=== PATIENT | female | born 1950 | race Caucasian/White ===

== ENCOUNTER 2020-08-04 08:35 | Outpatient (REF) | payer MEDICARE, SELFPAY ==
[2020-08-04 11:05] LABS: Glucose Urine UA NEG (NEG); Leukocyte Esterase Urine NEG (NEG); Nitrite Urine NEG (NEG); Specific Gravity - Urine 1.015 (1.005-1.025); Urine Blood NEG (NEG); Urine Ketones 15 MG/DL (NEG); Urine Protein NEG (NEG-TRACE)
[2020-08-04 11:11] LABS: Appearance Urine CLEAR; Color Urine YELLOW
[2020-08-04 11:18] LABS: TSH reflex Free T4 1.65 mIU/mL (0.32-4.0)
[2020-08-04 11:20] LABS: Alanine Aminotransferase 110 U/L (0-31); Albumin Level 4.5 g/dL (3.5-5.0); Alkaline Phosphatase 96 U/L (39-117); Anion Gap 15 (12-20); Aspartate Amino Transferase 75 U/L (5-31); Bilirubin Total 0.4 mg/dL (0.0-1.0); Blood Urea Nitrogen 19 mg/dL (9-16); Calcium 9.4 mg/dL (8.4-10.2); Carbon Dioxide 26 mmol/L (22-29); Chloride 101 mmol/L (96-108); Cholesterol 181 mg/dL; Estimated Glomerular Filt Rate 55; Glucose Fasting 97 mg/dL (60-99); HDL Cholesterol 80 mg/dL; LDL Cholesterol Calculated 87 mg/dl; Potassium 3.8 mmol/l (3.3-5.1); Sodium 138 mmol/L (135-145); Total Protein 7.1 g/dL (6.5-8.0); Triglycerides 72 mg/dL
== END 2020-08-04 08:36 | disposition home or self-care (01) ==
LOC: HO.LAB 08:35
PROVIDERS: PCP Family Medicine; Visit Provider Family Medicine
DX: Z00.00 Encounter for general adult medical examination without abnormal findings (principal); I10 Essential (primary) hypertension
CPT/HCPCS: 80053; 80061; 81003; 84443

== ENCOUNTER 2020-10-01 10:42 | Outpatient (REF) | payer MEDICARE, SELFPAY ==
[2020-10-01 12:10] LABS: Alanine Aminotransferase 59 U/L (0-31); Albumin Level 4.5 g/dL (3.5-5.0); Alkaline Phosphatase 87 U/L (39-117); Anion Gap 17 (12-20); Aspartate Amino Transferase 41 U/L (5-31); Bilirubin Total 0.5 mg/dL (0.0-1.0); Blood Urea Nitrogen 24 mg/dL (9-16); Calcium 9.7 mg/dL (8.4-10.2); Carbon Dioxide 26 mmol/L (22-29); Chloride 99 mmol/L (96-108); Estimated Glomerular Filt Rate > 60; Glucose Random 99 mg/dL (60-115); Potassium 4.3 mmol/l (3.3-5.1); Sodium 138 mmol/L (135-145); Total Protein 7.2 g/dL (6.5-8.0)
== END 2020-10-01 10:43 | disposition home or self-care (01) ==
LOC: HO.LAB 10:42
PROVIDERS: PCP Family Medicine; Visit Provider Family Medicine
DX: R74.01 Elevation of levels of liver transaminase levels (principal)
CPT/HCPCS: 80053

== ENCOUNTER 2020-11-03 10:24 | Outpatient (REF) | payer MEDICARE, OTHER, SELFPAY ==
[2020-11-03 12:24] LABS: Alanine Aminotransferase 38 U/L (0-31); Albumin Level 4.5 g/dL (3.5-5.0); Alkaline Phosphatase 86 U/L (39-117); Anion Gap 13 (12-20); Aspartate Amino Transferase 28 U/L (5-31); Bilirubin Total 0.4 mg/dL (0.0-1.0); Blood Urea Nitrogen 18 mg/dL (9-16); Carbon Dioxide 28 mmol/L (22-29); Chloride 102 mmol/L (96-108); Estimated Glomerular Filt Rate > 60; Glucose Random 110 mg/dL (60-115); Sodium 139 mmol/L (135-145); Total Protein 7.2 g/dL (6.5-8.0)
== END 2020-11-03 10:25 | disposition home or self-care (01) ==
LOC: HO.LAB 10:24
PROVIDERS: Absent Provider Family Medicine; PCP Family Medicine; Visit Provider Urology
DX: N39.0 Urinary tract infection, site not specified (principal); R74.01 Elevation of levels of liver transaminase levels
CPT/HCPCS: 36415; 80053; Q3014

== ENCOUNTER 2021-02-02 08:41 | Outpatient (REF) | payer MEDICARE, OTHER, SELFPAY ==
[2021-02-02 10:11] LABS: Alanine Aminotransferase 33 U/L (0-31); Albumin Level 4.4 g/dL (3.5-5.0); Alkaline Phosphatase 86 U/L (39-117); Anion Gap 13 (12-20); Aspartate Amino Transferase 27 U/L (5-31); Bilirubin Total 0.6 mg/dL (0.0-1.0); Blood Urea Nitrogen 26 mg/dL (9-16); Calcium 9.4 mg/dL (8.4-10.2); Carbon Dioxide 28 mmol/L (22-29); Chloride 99 mmol/L (96-108); Estimated Glomerular Filt Rate 60; Glucose Random 106 mg/dL (60-115); Sodium 136 mmol/L (135-145); Total Protein 7.3 g/dL (6.5-8.0)
== END 2021-02-02 08:42 | disposition home or self-care (01) ==
LOC: HO.LAB 08:41
PROVIDERS: PCP Family Medicine; Visit Provider Family Medicine
DX: R74.01 Elevation of levels of liver transaminase levels (principal)
CPT/HCPCS: 36415; 80053

== ENCOUNTER 2021-05-17 08:27 | Outpatient (REF) | payer MEDICARE, OTHER, SELFPAY ==
[2021-05-17 09:35] LABS: Alanine Aminotransferase 24 U/L (0-31); Albumin Level 4.3 g/dL (3.5-5.0); Alkaline Phosphatase 84 U/L (39-117); Anion Gap 14 (12-20); Aspartate Amino Transferase 23 U/L (5-31); Bilirubin Total 0.4 mg/dL (0.0-1.0); Blood Urea Nitrogen 19 mg/dL (9-16); Calcium 9.4 mg/dL (8.4-10.2); Carbon Dioxide 28 mmol/L (22-29); Chloride 102 mmol/L (96-108); Estimated Glomerular Filt Rate 54; Glucose Fasting 109 mg/dL (60-99); Potassium 4.6 mmol/L (3.3-5.1); Sodium 139 mmol/L (135-145); Total Protein 7.1 g/dL (6.5-8.0)
== END 2021-05-17 08:28 | disposition home or self-care (01) ==
LOC: HO.LAB 08:27
PROVIDERS: PCP Family Medicine; Visit Provider Family Medicine
DX: Z00.00 Encounter for general adult medical examination without abnormal findings (principal); R74.01 Elevation of levels of liver transaminase levels
CPT/HCPCS: 36415; 80053

== ENCOUNTER 2021-12-03 07:38 | Outpatient (REF) | payer MEDICARE, OTHER, SELFPAY ==
[2021-12-03 09:00] LABS: Alanine Aminotransferase 27 U/L (0-31); Albumin Level 4.3 g/dL (3.5-5.0); Alkaline Phosphatase 71 U/L (39-117); Anion Gap 12 (12-20); Aspartate Amino Transferase 22 U/L (5-31); Bilirubin Total 0.5 mg/dL (0.0-1.0); Blood Urea Nitrogen 24 mg/dL (9-16); Calcium 9.9 mg/dL (8.4-10.2); Carbon Dioxide 26 mmol/L (22-29); Chloride 105 mmol/L (96-108); Cholesterol 153 mg/dL; Estimated Glomerular Filt Rate 52; Glucose Fasting 109 mg/dL (60-99); HDL Cholesterol 57 mg/dL; LDL Cholesterol Calculated 78 mg/dl; Potassium 4.3 mmol/L (3.3-5.1); Sodium 139 mmol/L (135-145); Triglycerides 92 mg/dL
[2021-12-03 09:15] LABS: Microalbum/Creatinine Ratio Ur 19.3 ug/mg cr
[2021-12-03 09:30] LABS: TSH reflex Free T4 2.81 uIU/mL (0.32-4.0)
== END 2021-12-03 07:39 | disposition home or self-care (01) ==
LOC: HO.LAB 07:38
PROVIDERS: PCP Family Medicine; Visit Provider Family Medicine
DX: Z00.00 Encounter for general adult medical examination without abnormal findings (principal); I10 Essential (primary) hypertension; R74.01 Elevation of levels of liver transaminase levels
CPT/HCPCS: 36415; 80053; 80061; 82043; 84443

== ENCOUNTER 2022-10-31 09:25 | Outpatient (REF) | payer MEDICARE, OTHER, SELFPAY ==
[2022-10-31 14:18] LABS: Appearance Urine Clear; Color Urine Yellow; Glucose Urine UA Negative (Negative); Leukocyte Esterase Urine Negative (Negative); Nitrite Urine Negative (Negative); PH 6.5 (5.0-9.0); Urine Blood Negative (Negative); Urine Ketones Negative (Negative); Urine Protein Negative (Neg-Trace)
[2022-10-31 15:20] LABS: Creatinine Urine 46.53 mg/dL; Microalbum/Creatinine Ratio Ur 19.3 ug/mg cr
== END 2022-10-31 09:26 | disposition home or self-care (01) ==
LOC: HO.LAB 09:25
PROVIDERS: PCP Family Medicine; Visit Provider Family Medicine
DX: Z00.00 Encounter for general adult medical examination without abnormal findings (principal); N39.0 Urinary tract infection, site not specified; I10 Essential (primary) hypertension
CPT/HCPCS: 81003; 82043; 87086

== ENCOUNTER 2023-06-08 07:28 | Outpatient (REF) | payer MEDICARE, OTHER, SELFPAY ==
[2023-06-08 07:38] LABS: MANUAL DIFF FLAG NO
[2023-06-08 08:51] LABS: Basophils Absolute Auto 0.1 X10*3/uL (0.0-0.2); Basophils Percent Auto 1.3 % (0-2); Eosinophils Absolute Auto 0.2 X10*3/uL (0.0-0.4); Eosinophils Percent Auto 2.7 % (0-4); Hemoglobin 13.4 g/dl (12.0-16.0); Imm Gran Abs Auto 0.03 X10*3/uL (0.00-0.03); Imm Gran Pct Auto 0.4 % (0.0-0.4); Lymphocytes Absolute Auto 1.7 X10*3/uL (1.2-4.9); Lymphocytes Percent Auto 22.4 % (20-40); Mean Corpuscular HGB Conc 32.7 g/dl (31.0-35.0); Mean Corpuscular Hemoglobin 29.6 pg (27.0-33.0); Mean Corpuscular Volume 90.5 fL (80.0-98.0); Monocytes Absolute Auto 0.8 X10*3/uL (0.1-1.2); Monocytes Percent Auto 10.8 % (2-11); Neutrophils Absolute Auto 4.6 x10*3/uL (2.0-8.3); Neutrophils Percent Auto 62.4 % (45-73); Platelet Count 402 X10*3/uL (160-400); Red Blood Count 4.53 X10*6/uL (4.20-5.50); Red Cell Distribution Width 12.9 % (11.0-16.0); White Blood Count 7.4 X10*3/uL (4.8-10.8)
[2023-06-08 09:51] LABS: Appearance Urine Clear; Color Urine Yellow; Glucose Urine UA Negative (Negative); Leukocyte Esterase Urine Negative (Negative); Nitrite Urine Negative (Negative); Specific Gravity - Urine 1.015 (1.005-1.025); UMIC TRIGGER UA YES; Urine Blood Trace (Negative); Urine Ketones Negative (Negative); Urine Protein Negative (Neg-Trace)
[2023-06-08 09:52] LABS: Alanine Aminotransferase 28 U/L (0-31); Albumin Level 4.3 g/dL (3.5-5.0); Alkaline Phosphatase 78 U/L (39-117); Anion Gap 14 (12-20); Aspartate Amino Transferase 25 U/L (5-31); Bilirubin Total 0.5 mg/dL (0.0-1.0); Blood Urea Nitrogen 24 mg/dL (9-16); Calcium 9.6 mg/dL (8.4-10.2); Carbon Dioxide 26 mmol/L (22-29); Chloride 104 mmol/L (96-108); Cholesterol 192 mg/dL; Estimated Glomerular Filt Rate 53; Glucose Fasting 111 mg/dL (60-99); HDL Cholesterol 84 mg/dL; LDL Cholesterol Calculated 95 mg/dl; Potassium 3.8 mmol/L (3.3-5.1); Sodium 140 mmol/L (135-145); Total Protein 7.5 g/dL (6.5-8.0); Triglycerides 68 mg/dL
[2023-06-08 09:54] LABS: Bacteria Urine None Seen (None Seen); RBC Urine 0-2 /HPF (0-2); Squamous Epithelial Cell Urine 0-2 /HPF (0-2); WBC Urine 0-5 /HPF (0-5)
[2023-06-08 09:56] LABS: TSH reflex Free T4 2.74 uIU/mL (0.32-4.0)
[2023-06-08 11:06] LABS: Creatinine Urine 127.91 mg/dL; Microalbum/Creatinine Ratio Ur 27.3 ug/mg cr
== END 2023-06-08 07:29 | disposition home or self-care (01) ==
LOC: HO.LAB 07:28
PROVIDERS: PCP Family Medicine; Visit Provider Family Medicine
DX: Z00.00 Encounter for general adult medical examination without abnormal findings (principal); I10 Essential (primary) hypertension
CPT/HCPCS: 36415; 80053; 80061; 81001; 82043; 84443; 85025

== ENCOUNTER 2023-06-15 10:40 | Outpatient (AMB) | payer MEDICARE, OTHER, SELFPAY ==
--- NOTE | 2023-06-15 10:42 | A.OFFPC_ITS ---
Vital Signs 06/15/23 10:43 Height 5 ft 1 in Weight 150 lb 4 oz BMI 28.4 BP 128/72 Blood Pressure Location Lt brachial Position Sitting Pulse 73 Pulse Source Pulse Oximeter Pulse Oximetry (%) 100 Oxygen Delivery Method Room Air Intake Visit Reasons: f/u hypertension and pre-diabetes Intake Note: Patient is here for her yearly exam today. Manager Benefit Required: Yes Allergies sulfadiazine Allergy (Unknown, Verified 06/15/23 10:46) itch Medication List - Last Reconciled 06/15/23 by Erik Vogt MD aspirin (Adult Aspirin Regimen) 81 mg PO DAILY atorvastatin 20 mg PO DAILY 90 days hydrochlorothiazide 25 mg PO DAILY lisinopril 40 mg PO DAILY 90 days loteprednol etabonate 0.5% (Lotemax) 1 drp ophthalmic (eye) BID metronidazole 0.75% 1 appl topical BEDTIME 30 days Tobacco use date assessed: 06/15/23 Fall risk assessment: No Falls in past year Last assessed Fall Risk: 06/15/23 Dental Screening Dental Screen Date: 06/15/23 Did you have a dental visit in the last 12 months?: No Did you have a dental problem in the last 6 months where you did not have access to dental care?: No Was dental information given to patient?: Patient has dentist HPI f/u hypertension and pre-diabetes HPI Details 73 y/o female presents to f/u hypertension and pre-diabetes. Labs were drawn 06/08/23. Reviewed labs with pt. Elevated fasting glucose of 111. Last A1c 04/18/23 5.6%. Triglycerides 68. TC 192. LDL 95. HDL 84. Blood pressure today 128/72. She is on lisinopril 40mg and HCTZ 25mg daily. [facility] Surgical History History of tonsillectomy Social History Housing: House Alcohol intake: current Alcohol intake frequency: a few times a week Patient Tobacco Use Status: Never used Tobacco e-Cigarette/Vaping Use: Never Used Second Hand Smoke Exposure: No service: No Current occupational status: retired Current occupational exposures/hazards: No Cognitive needs: No Hearing needs: No Vision needs: Yes Questionnaire Thrive Questionnaire Date Thrive assessed: 06/07/21 CONNIE-7 AMB Questionnaire CONNIE-7 Date CONNIE - 7 assessed: 08/31/22 Source: Developed by Drs. Vega Pichardo, Faina Tuttle, Shailesh Leach and colleagues, with an educational john from [employer]. Review of Systems Const Denies chills, Denies fatigue, Denies fever(s), Denies headache(s) and Denies weakness ENT Denies dizziness and Denies headache(s) Card Denies chest pain, Denies lightheadedness, Denies dyspnea and Denies other (Palpitations) Resp Denies cough, Denies dyspnea, Denies wheezing and Denies other ( shortness of breath) Musc Denies numbness and Denies tingling Neuro Denies dizziness, Denies headache(s), Denies numbness, Denies tingling, Denies paresthesias and Denies weakness Psych Denies anxiety and Denies depression Endo Denies fatigue Aller/Immun Denies wheezing Physical exam (Primary Care) Vital Signs: Last Vital Signs Pulse 73 06/15/23 10:43 BP 128/72 06/15/23 10:43 Pulse Ox 100 06/15/23 10:43 Oxygen Delivery Method Room Air 06/15/23 10:43 BMI result Body Mass Index 28.4 Tobacco/Smoking Status: Tobacco use Status Tobacco use date assessed 06/15/23 06/15/23 10:53 Patient Tobacco Use Status Never used Tobacco 06/15/23 10:53 e-Cigarette/Vaping Use Never Used 06/15/23 10:53 Thrive Assessment: Date of Thrive Assessment Date Thrive assessed 06/07/21 06/15/23 10:53 Const General: no acute distress and well developed Nutritional Appearance: well nourished Orientation/consciousness: patient oriented x3 HENMT Head: Yes normocephalic and Yes atraumatic Eyes General: appearance normal, both eyes and all related structures Pupils: Equal, round and reactive pupils present EOM: EOMs intact bilaterally Resp Effort & Inspection: normal respiratory effort Auscultation: clear to auscultation bilaterally Cardio Rate: regular rate Rhythm: regular rhythm Heart sounds: S1 normal heart sound present, S2 normal heart sound present, no gallops, no murmurs and no rubs Neuro General: patient oriented x3 and gait normal Cranial nerves: Yes Equal, round and reactive pupils present Psych Affect: normal affect Assessment and Plan Assessment & Plan (1) Essential hypertension: Code(s): I10 - Essential (primary) hypertension Plan: Pressure is well controlled. Goal is Less than 140/90 Continue current medication regimen (2) Hyperlipidemia: Code(s): E78.5 - Hyperlipidemia, unspecified Plan: Lipids are well controlled on atorvastatin Continue current medication (3) Pre-diabetes: Code(s): R73.03 - Prediabetes Plan: A1c was 5.6% 2 months ago. Fasting blood sugar last week was 111 Encouraged ongoing diet lower in sugars and starches and we will check her A1c a gain at her next visit Coding Level of Care Code Est Pt Level 3 (08454) Diagnoses Essential hypertension I10 Hyperlipidemia E78.5 Pre-diabetes R73.03
[2023-06-15 10:43] VITALS: BP 128/72; PULSE 73; O2SAT 100; BMI 28.4
== END 2023-06-15 11:19 | disposition home or self-care (01) ==
PROVIDERS: PCP Family Medicine; Visit Provider Family Medicine
DX: I10 Essential (primary) hypertension (principal); E78.5 Hyperlipidemia, unspecified; R73.03 Prediabetes
CPT/HCPCS: 99213

== ENCOUNTER 2023-07-27 12:47 | Outpatient (AMB) | payer MEDICARE, OTHER, SELFPAY ==
[2023-07-27 12:50] VITALS: BP 138/70; PULSE 92; RESP 12; TEMP 36.6; O2SAT 99; BMI 28.2
--- NOTE | 2023-07-27 12:50 | MHC.PC.OV ---
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: No Accompanied by: Self / Same As Patient Allergies sulfadiazine Allergy (Unknown, Verified 07/27/23 12:54) itch Tobacco use date assessed: 06/15/23 Fall risk assessment: No Falls in past year Last assessed Fall Risk: 07/27/23 Dental Screening Dental Screen Date: 07/27/23 Did you have a dental visit in the last 12 months?: No Did you have a dental problem in the last 6 months where you did not have access to dental care?: No Was dental information given to patient?: Patient has dentist HPI R cataract surgery-08/03 HPI Details Patient presents for preoperative clearance prior to bilateral cataract surgery. Procedure: Bilateral cataract surgery Date: R eye 08/03/23, L eye 08/22/23 Surgeon: Dr. Sandra Sadler [facility] Anesthesia: Cardiac Hx: None Pulmonary Hx: None & nonsmoker. Prior Surgical complications: None Prior Anesthesia Complications: None Coag Issues: None Functional [place]: Able to climb two flight of stairs, one flight of stairs with a bag of groceries. [facility] Medical History No pertinent past medical history Surgical History History of tonsillectomy Social History Housing: House Alcohol intake: current Alcohol intake frequency: a few times a week Patient Tobacco Use Status: Former Tobacco user e-Cigarette/Vaping Use: Never Used Second Hand Smoke Exposure: No service: No Current occupational status: retired Current occupational exposures/hazards: No Cognitive needs: No Hearing needs: No Vision needs: No Questionnaire Thrive Questionnaire Date Thrive assessed: 06/07/21 CONNIE-7 AMB Questionnaire CONNIE-7 Date CONNIE - 7 assessed: 08/31/22 Source: Developed by Drs. Vega Pichardo, Faina Tuttle, Shailesh Leach and colleagues, with an educational john from [employer]*. Review of Systems Const Denies chills, Denies fatigue, Denies fever(s), Denies headache(s) and Denies weakness ENT Denies dizziness and Denies headache(s) Card Denies chest pain, Denies lightheadedness, Denies dyspnea and Denies other (Palpitations) Resp Denies cough, Denies dyspnea, Denies wheezing and Denies other ( shortness of breath) Musc Denies numbness and Denies tingling Neuro Denies dizziness, Denies headache(s), Denies numbness, Denies tingling, Denies paresthesias and Denies weakness Psych Denies anxiety and Denies depression Endo Denies fatigue Aller/Immun Denies wheezing Physical exam (Primary Care) Vital Signs: Last Vital Signs Temp 97.8 F 07/27/23 12:50 Pulse 92 07/27/23 12:50 Resp 12 07/27/23 12:50 BP 138/70 07/27/23 12:50 Pulse Ox 99 07/27/23 12:50 Oxygen Delivery Method Room Air 07/27/23 12:50 BMI result Body Mass Index 28.2 Tobacco/Smoking Status: Tobacco use Status Tobacco use date assessed 06/15/23 07/27/23 12:56 Patient Tobacco Use Status Former Tobacco user 07/27/23 12:56 e-Cigarette/Vaping Use Never Used 07/27/23 12:56 Thrive Assessment: Date of Thrive Assessment Date Thrive assessed 06/07/21 07/27/23 12:56 Const General: no acute distress and well developed Nutritional Appearance: well nourished Orientation/consciousness: patient oriented x3 [facility] Head: Yes normocephalic and Yes atraumatic Eyes General: appearance normal, both eyes and all related structures Pupils: Equal, round and reactive pupils present EOM: EOMs intact bilaterally Resp Effort & Inspection: normal respiratory effort Auscultation: clear to auscultation bilaterally Cardio Rate: regular rate Rhythm: regular rhythm Heart sounds: S1 normal heart sound present, S2 normal heart sound present, no gallops, no murmurs and no rubs Neuro General: patient oriented x3 and gait normal Cranial nerves: Yes Equal, round and reactive pupils present Psych Affect: normal affect Assessment and Plan Assessment & Plan (1) Pre-operative clearance: Code(s): Z01.818 - Encounter for other preprocedural examination Plan: 73-year-old?female?presents?for?preoperative?clearance?prior?to?cataract?surgeries. No?history?of?heart?disease. No?history?of?lung?disease Cardiopulmonary?exams?today?are?within?normal?limits No?history?of?surgical?or?anesthesia?complications.??No?coagulopathies. Patient's?functional?reserve?is?good. Low?risk?patient?for?low?risk?procedure no?contraindications?to?proceeding?with?proposed?procedure. Coding Level of Care Code Est Pt Level 3 (97446) Diagnoses Pre-operative clearance Z01.818
== END 2023-07-27 13:21 | disposition home or self-care (01) ==
PROVIDERS: PCP Family Medicine; Visit Provider Family Medicine
DX: Z01.818 Encounter for other preprocedural examination (principal)
CPT/HCPCS: 99213

== ENCOUNTER 2023-09-21 10:49 | Outpatient (AMB) | payer MEDICARE, OTHER, SELFPAY ==
--- NOTE | 2023-09-21 11:06 | A.OFFPC_ITS ---
Vital Signs 09/21/23 11:07 Height 5 ft 1 in Weight 151 lb BMI 28.5 BP 132/82 Blood Pressure Location Lt brachial Position Sitting Pulse 82 Pulse Source Pulse Oximeter Pulse Oximetry (%) 99 Oxygen Delivery Method Room Air Intake Visit Reasons: Extended exam with f/u labs and health maint. Intake Note: Patient is here for extended exam with follow up on labs and health maintenance. Patient would like refill of hydrochlorothiazide. Allergies sulfadiazine Allergy (Unknown, Verified 09/21/23 11:08) itch Tobacco use date assessed: 09/21/23 Fall risk assessment: No Falls in past year Last assessed Fall Risk: 09/21/23 HPI Extended exam with f/u labs and health maint. HPI Details 73 y/o female presents for an extended e xam with f/u labs and health maintenance. Had already reviewed labs drawn in May. Last A1c 04/18/23 5.6%. A1c today 09/21/23 is 5.7%. She notes when she had done her cataract surgery her blood pressure had been in the 190s. She reports she tolerated the procedure well. BP today 132/82. She is on lisinopril 40mg, hydrochlorothiazide 25mg daily. [facility] Medical History No pertinent past medical history Surgical History History of tonsillectomy Social History Housing: House Alcohol intake: current Alcohol intake frequency: a few times a week Patient Tobacco Use Status: Former Tobacco user e-Cigarette/Vaping Use: Never Used Second Hand Smoke Exposure: No service: No Current occupational status: retired Current occupational exposures/hazards: No Cognitive needs: No Hearing needs: No Vision needs: No Questionnaire PHQ-9 Over the last 2 weeks, how often have you been bothered by any of the following problems? 1. Little interest or pleasure in doing things: not at all 2. Feeling down, depressed, or hopeless: not at all 3. Trouble falling or staying asleep, or sleeping too much: not at all 4. Feeling tired or having little energy: not at all 5. Poor appetite or overeating: not at all 6. Feeling bad about yourself - or that you are a failure or have let yourself or your family down: not at all 7. Trouble concentrating on things, such as reading the newspaper or watching television: not at all 8. Moving or speaking so slowly that other people could have noticed. Or the opposite - being so fidgety or restless that you have been moving around a lot more than usual: not at all 9. Thoughts that you would be better off or of hurting yourself in some way: not at all Total score: 0 Source: Developed by Drs. Vega Pichardo, Faina Tuttle, Shailesh Leach and colleagues, with an educational john from [employer]. Thrive Questionnaire Date Thrive assessed: 09/21/23 I am a: Patient What is your living situation today?: I have a steady place to live Within the past 12 months, did the food you bought not last and you didn't have the money to get more?: Never true Within the past 12 months, did you worry whether your food would run out before you got money to buy more?: Never true Do you have trouble paying for medicines?: No Do you have trouble getting transportation to medical appointments?: No Do you have trouble paying your heating and electricity bill?: No Do you have trouble taking care of your child, family member or friend?: No Do you have trouble with day-to-day activities such as bathing, preparing meals, shopping, managing finances, etc.?: No Are you currently unemployed and looking for a job?: No Are you interested in more education?: No AUDIT C Alcohol Use Questionnaire (AUDIT-C) 1. How often do you have a drink containing alcohol?: 4 or more times a week 2. How many drinks containing alcohol do you have on a typical day when you are drinking?: 1 or 2 3. How often do you have six or more drinks on one occasion?: Never Total Score: 4 CONNIE-7 AMB Questionnaire CONNIE-7 Date CONNIE - 7 assessed: 09/21/23 Feeling nervous, anxious, or on edge: 0 = Not at all Not being able to stop or control worryin = Not at all Worrying too much about different things: 0 = Not at all Trouble relaxin = Not at all Being so restless that it is hard to sit still: 0 = Not at all Becoming easily annoyed or irritable: 0 = Not at all Feeling afraid as if something awful might happen: 0 = Not at all Total CONNIE-7 score (0-4 normal; 5-9 mild; 10-14 moderate; 15-21 severe): 0 Source: Developed by Drs. Vega Pichardo, Faina Tuttle, Shailesh Leach and colleagues, with an educational john from [employer]. Review of Systems Const Denies chills, Denies fatigue, Denies fever(s), Denies headache(s) and Denies weakness Eyes Denies change in vision ENT Denies dizziness, Denies headache(s), Denies hearing loss, Denies nasal congestion, Denies sinus pain, Denies sinus pressure and Denies sore throat Card Denies chest pain, Denies lightheadedness, Denies dyspnea and Denies other (palpitations) Resp Denies cough, Denies dyspnea and Denies wheezing GI Denies abdominal pain, Denies melena, Denies hematochezia, Denies change in bowel habits, Denies dyspepsia and Denies nausea Denies hematuria and Denies dysuria Musc Denies abnormal gait, Denies myalgias, Denies arthralgias, Denies numbness and Denies tingling Skin/Breast Denies rash, Denies unusual bruising and Denies wounds Neuro Denies abnormal gait, Denies dizziness, Denies headache(s), Denies memory loss, Denies numbness, Denies Sensory deficit (Neuro), Denies tingling and Denies weakness Psych Denies anxiety, Denies depression and Denies memory loss Endo Denies cold intolerance, Denies fatigue, Denies heat intolerance, Denies polydipsia and Denies polyuria Asa/Lymph Denies easy bleeding and Denies easy bruising Aller/Immun Denies wheezing Physical exam (Primary Care) Vital Signs: Last Vital Signs Pulse 82 09/21/23 11:07 BP 132/82 09/21/23 11:07 Pulse Ox 99 09/21/23 11:07 Oxygen Delivery Method Room Air 09/21/23 11:07 BMI result Body Mass Index 28.5 Tobacco/Smoking Status: Tobacco use Status Tobacco use date assessed 09/21/23 09/21/23 11:10 Patient Tobacco Use Status Former Tobacco user 09/21/23 11:07 e-Cigarette/Vaping Use Never Used 09/21/23 11:07 PHQ-9: PHQ-9 Score PHQ-9: Total score 0 09/21/23 11:39 Thrive Assessment: Date of Thrive Assessment Date Thrive assessed 09/21/23 09/21/23 11:17 Const General: no acute distress, well developed, alert and awake Nutritional Appearance: well nourished Orientation/consciousness: patient oriented x3 HENMT Head: Yes normocephalic and Yes atraumatic Ears: hearing grossly normal bilaterally and TM's normal bilaterally General nose exam: Normal external nose present and Normal nares present Mouth: Normal oral and palatal mucosa present and moist mucous membranes Teeth and gingiva: dentition normal Throat: Yes posterior oropharynx normal Eyes General: appearance normal, both eyes and all related structures Pupils: Equal, round and reactive pupils present and Pupil accommodation reflex normal EOM: EOMs intact bilaterally Neck Neck: Yes normal visual inspection, Yes no lymphadenopathy and Yes trachea midline Thyroid: Thyroid normal Carotids: no bruits Lymphatic: no lymphadenopathy noted Chest Chest palpation & inspection: normal inspection of the chest Resp Effort & Inspection: normal respiratory effort Auscultation: clear to auscultation bilaterally Cardio Rate: regular rate Rhythm: regular rhythm Heart sounds: S1 normal heart sound present, S2 normal heart sound present, no gallops, no murmurs and no rubs Bruits: no abdominal aortic bruits and no carotid bruits GI Palpation (GI): No Abdominal aortic bruit present, Soft to palpation, nontender, No hepatosplenomegaly present and No Rebound tenderness present Auscultation: normal bowel sounds General: Yes no CVA tenderness Back/Spine/Pelvis Back: no CVA tenderness Cervical Spine: cervical ROM normal and No Cervical spine tenderness Thoracic/Lumbar Spine: thoraco-lumbar ROM normal, No pain with thoraco-lumbar ROM, No thoracic spinal tenderness and No lumbar spinal tenderness Skin Lesions: no lesions Rashes: no rashes Trauma: no lacerations or abrasions Wounds: no wounds Nails: normal Neuro General: patient oriented x3 Cranial nerves: Yes Equal, round and reactive pupils present Cognition (Neuro): normal cognition Gait exam (Neuro): Normal gait present Motor exam (neuro): 5/5 motor strength present throughout Sensory Exam: No Sensory deficit (Neuro) Deep tendon reflexes (DTR's): Right patellar reflex intensity grade: 2+ and Left patellar reflex intensity grade: 2+ Extrem General: Yes normal to inspection and No edema Psych Appearance: grossly normal Affect: normal affect Attitude: cooperative Thought process: Normal thought process present Assessment and Plan Assessment & Plan (1) Essential hypertension: Code(s): I10 - Essential (primary) hypertension Plan: Blood?pressure?controlled.??Goal?is?less?than?140/90. She?notes?that?her?blood?pressures?were?higher?at?Ophthalmology?for?her?surgerie s?for?glaucoma. May?have?been?secondary?to?fasting?and?anxiety. She?will?let?me?know?if?her?blood?pressures?are?higher?out?in?the?community. No?changes?to?her?regimen?today?but?we?will?follow- up?at?her?next?visit?in?3?months. (2) Hyperlipidemia: Code(s): E78.5 - Hyperlipidemia, unspecified Plan: Lipids?are?controlled. (3) Pre-diabetes: Code(s): R73.03 - Prediabetes Plan: 5.7% and?will?discuss?at?next?visit (4) Screening for colon cancer: Code(s): Z12.11 - Encounter for screening for malignant neoplasm of colon Plan: Cologuard?test?last?year?negative Up-to-date (5) Breast cancer screening by mammogram: Code(s): Z12.31 - Encounter for screening mammogram for malignant neoplasm of breast Plan: Declines?mammogram Performs?self?exam?and?will?let?me?know?if?she?notices?any?changes (6) Screening for osteoporosis: Code(s): Z13.820 - Encounter for screening for osteoporosis Plan: Risk?for?osteoporosis Bone?density?test?ordered (7) Adult general medical exam: Code(s): Z00.00 - Encounter for general adult medical examination without abnormal findings Plan: Stable Orders: Orders XR DEXA axial skeleton Today Z91.89 - Other specified personal risk factors, not elsewhere classified Medications: Refilled hydrochlorothiazide 25 mg PO DAILY 90 tabs 1RF I10 - Essential (primary) hypertension Coding Level of Care Code Tele Est Pt Level 4 (45419) Diagnoses Essential hypertension I10 Hyperlipidemia E78.5 Pre-diabetes R73.03 Screening for colon cancer Z12.11 Breast cancer screening by mammogram Z12.31 Screening for osteoporosis Z13.820 Adult general medical exam Z00.00
[2023-09-21 11:07] VITALS: BP 132/82; PULSE 82; O2SAT 99; BMI 28.5
== END 2023-09-21 11:54 | disposition home or self-care (01) ==
PROVIDERS: PCP Family Medicine; Visit Provider Family Medicine
DX: I10 Essential (primary) hypertension (principal); E78.5 Hyperlipidemia, unspecified; R73.03 Prediabetes; Z12.11 Encounter for screening for malignant neoplasm of colon; Z12.31 Encounter for screening mammogram for malignant neoplasm of breast; Z13.820 Encounter for screening for osteoporosis
CPT/HCPCS: 83036; 99214

== ENCOUNTER 2024-05-20 10:38 | Outpatient (AMB) | payer MEDICARE, OTHER, SELFPAY ==
--- NOTE | 2024-05-20 10:44 | A.OFFPC_ITS ---
Vital Signs 05/20/24 10:45 Height 5 ft 1 in Weight 150 lb 6 oz BMI 28.4 BP 112/70 Blood Pressure Location Rt brachial Position Sitting Pulse 81 Pulse Source Pulse Oximeter Pulse Oximetry (%) 100 Oxygen Delivery Method Room Air Intake Visit Reasons: f/u hypertension and prediabetes Intake Note: Julienne is a 74 year old female who presents to the office today for a f/u hyper tension and prediabetes. Pt states she has what looks like a bug bite that fills with fluid on her left foot that she woulf like looked at today. Allergies sulfadiazine Allergy (Unknown, Verified 05/20/24 10:45) itch Medication List - Last Reconciled 05/20/24 by Erik Vogt MD aspirin (Adult Aspirin Regimen) 81 mg PO DAILY atorvastatin 20 mg PO DAILY 90 days hydrochlorothiazide 25 mg PO DAILY lisinopril 40 mg PO DAILY 90 days loteprednol etabonate 0.5% (Lotemax) 1 drp ophthalmic (eye) BID metronidazole 0.75% 1 appl topical BEDTIME 30 days Tobacco use date assessed: 05/20/24 Dental Screening Dental Screen Date: 02/16/24 HPI f/u hypertension and prediabetes HPI Details 74 y/o female presents to f/u hypertensi on and prediabetes. A1c today 05/20/24 5.3%, which improved from 6.3% in January. Blood pressure today 112/70. She is on hydrochlorothiazide 25mg, lisinopril 40mg daily. She continues to watch her diet. Pt has complaints of a bug bite/skin irritation, L foot. Has been using benadryl ointment which has helped with the itch. [facility] Medical History No pertinent past medical history Surgical History History of tonsillectomy Social History Housing: House Alcohol intake: current Alcohol intake frequency: a few times a week Patient Tobacco Use Status: Former Tobacco user e-Cigarette/Vaping Use: Never Used Second Hand Smoke Exposure: No service: No Current occupational status: retired Current occupational exposures/hazards: No Cognitive needs: No Hearing needs: No Vision needs: No Questionnaire PHQ-9 Over the last 2 weeks, how often have you been bothered by any of the following problems? 53225 - PHQ-9 Billing: Patient declined-do not bill Source: Developed by Drs. Vega Pichardo, Faina Tuttle, Shailesh Leach and colleagues, with an educational john from [employer]. Thrive Questionnaire Date Thrive assessed: 02/16/24 What is your living situation today?: I choose not to answer this question Within the past 12 months, did the food you bought not last and you didn't have the money to get more?: I choose not to answer this question Within the past 12 months, did you worry whether your food would run out before you got money to buy more?: I choose not to answer this question Do you have trouble paying for medicines?: I choose not to answer this question Do you have trouble getting transportation to medical appointments?: I choose not to answer this question Do you have trouble paying your heating and electricity bill?: I choose not to answer this question Do you have trouble taking care of your child, family member or friend?: I choose not to answer this question Do you have trouble with day-to-day activities such as bathing, preparing meals, shopping, managing finances, etc.?: I choose not to answer this question Are you currently unemployed and looking for a job?: I choose not to answer this question Are you interested in more education?: I choose not to answer this question THRIVE Score: 0 AUDIT C Alcohol Use Questionnaire (AUDIT-C) 1. How often do you have a drink containing alcohol?: 2-3 times a week 2. How many drinks containing alcohol do you have on a typical day when you are drinking?: 3 or 4 3. How often do you have six or more drinks on one occasion?: Never Total Score: 4 CONNIE-7 AMB Questionnaire CONNIE-7 Date CONNIE - 7 assessed: 09/21/23 Source: Developed by Drs. Vega Pichardo, Faina Tuttle, Shailesh Leach and colleagues, with an educational john from [employer]. CONNIE-7 Assessment Billing CONNIE-7 Assessment Tool: pt declined-do not bill Review of Systems Const Denies chills, Denies fatigue, Denies fever(s), Denies headache(s) and Denies weakness ENT Denies dizziness and Denies headache(s) Card Denies dyspnea Resp Denies cough, Denies dyspnea, Denies wheezing and Denies other (shortness of breath) Musc Denies numbness and Denies tingling Neuro Denies dizziness, Denies headache(s), Denies numbness, Denies tingling and Denies weakness Psych Denies anxiety and Denies depression Endo Denies fatigue Aller/Immun Denies wheezing Physical exam (Primary Care) Vital Signs: Last Vital Signs Pulse 81 05/20/24 10:45 BP 112/70 05/20/24 10:45 Pulse Ox 100 05/20/24 10:45 Oxygen Delivery Method Room Air 05/20/24 10:45 BMI result Body Mass Index 28.4 Tobacco/Smoking Status: Tobacco use Status Tobacco use date assessed 05/20/24 05/20/24 10:47 Patient Tobacco Use Status Former Tobacco user 05/20/24 10:44 e-Cigarette/Vaping Use Never Used 05/20/24 10:44 Thrive Assessment: Date of Thrive Assessment Date Thrive assessed 02/16/24 05/20/24 10:44 Const General: well developed; No acute distress Nutritional Appearance: well nourished Orientation/consciousness: patient oriented x3 HENMT Head: Yes normocephalic and Yes atraumatic Eyes General: appearance normal, both eyes and all related structures Pupils: Equal, round and reactive pupils present EOM: EOMs intact bilaterally Resp Effort & Inspection: normal respiratory effort Neuro General: patient oriented x3 and gait normal Cranial nerves: Yes Equal, round and reactive pupils present Psych Affect: normal affect Results AMB Hemoglobin A1c AMB Hemoglobin A1c 5.3 % Last Edit by Anne Marie Wiley CMA on 05/20/24 11:10 Results Reviewed Results Reviewed: Laboratory Last Values Hgb A1c (Clinic) 5.3 % (4.0-6.0) 05/20/24 11:06 Assessment and Plan Assessment & Plan (1) Essential hypertension: Code(s): I10 - Essential (primary) hypertension Plan: Blood?pressure?is?well?controlled.??Goal?is?less?than?140/90 Continue?current?medication?regimen (2) Pre-diabetes: Code(s): R73.03 - Prediabetes Plan: A1c?had?climbed?to?6.3%.??Had?advised?lifestyle?changes A1c?now?5.3%?today Continue?diet?low?in?sugars?and?starches,?weight?control?and?exercise (3) Skin irritation: Code(s): R23.8 - Other skin changes Plan: Appears?to?be?a?hypersensitivity?reaction?such?as?contact?dermatitis Will?give?her?a?script?for?betamethasone?ointment She?can?let?me?know?if?not?improving?or?return Orders: Orders AMB Hemoglobin A1c Today R73.03 - Prediabetes Comprehensive [place]. Panel Fast Today Z00.00 - Encounter for general adult medical examination without abnormal findings Complete Blood Count Auto Diff Today Z00.00 - Encounter for general adult medical examination without abnormal findings TSH reflex Free T4 Today Z00.00 - Encounter for general adult medical examination without abnormal findings UA and rflx microscopic Today Z00.00 - Encounter for general adult medical examination without abnormal findings Lipid Panel Today Z00.00 - Encounter for general adult medical examination without abnormal findings Microalbumin, Random (w Creat) Today I10 - Essential (primary) hypertension Vitamin D 25-OH Total Today E55.9 - Vitamin D deficiency, unspecified Medications: New betamethasone valerate 0.1% 1 appl topical BID 14 days PRN 45 grams 0RF skin irritation Coding Level of Care Code Est Pt Level 3 (89575) Diagnoses Essential hypertension I10 Pre-diabetes R73.03 Skin irritation R23.8
[2024-05-20 10:45] VITALS: BP 112/70; PULSE 81; O2SAT 100; BMI 28.4
== END 2024-05-20 11:27 | disposition home or self-care (01) ==
PROVIDERS: PCP Family Medicine; Visit Provider Family Medicine
DX: I10 Essential (primary) hypertension (principal); R73.03 Prediabetes; R23.8 Other skin changes
CPT/HCPCS: 83036; 99213

== ENCOUNTER 2024-09-17 08:40 | Outpatient (REF) | payer MEDICARE, OTHER, SELFPAY ==
[2024-09-17 08:57] LABS: MANUAL DIFF FLAG NO
[2024-09-17 09:51] LABS: Basophils Absolute Auto 0.1 X10*3/uL (0.0-0.2); Basophils Percent Auto 1.8 % (0-2); Eosinophils Absolute Auto 0.3 X10*3/uL (0.0-0.4); Eosinophils Percent Auto 4.3 % (0-4); Hematocrit 36.4 % (37.0-47.0); Hemoglobin 12.1 g/dl (12.0-16.0); Imm Gran Abs Auto 0.02 X10*3/uL (0.00-0.03); Imm Gran Pct Auto 0.3 % (0.0-0.4); Lymphocytes Absolute Auto 1.4 X10*3/uL (1.2-4.9); Lymphocytes Percent Auto 22.4 % (20-40); Mean Corpuscular HGB Conc 33.2 g/dl (31.0-35.0); Mean Corpuscular Hemoglobin 29.1 pg (27.0-33.0); Mean Corpuscular Volume 87.5 fL (80.0-98.0); Mean Platelet Volume 9.7 fL (9.4-12.3); Monocytes Absolute Auto 0.8 X10*3/uL (0.1-1.2); Monocytes Percent Auto 13.2 % (2-11); Neutrophils Absolute Auto 3.5 x10*3/uL (2.0-8.3); Platelet Count 368 X10*3/uL (160-400); Red Blood Count 4.16 X10*6/uL (4.20-5.50); Red Cell Distribution Width 12.8 % (11.0-16.0); White Blood Count 6.1 X10*3/uL (4.8-10.8)
[2024-09-17 10:34] LABS: Appearance Urine Clear; Color Urine Yellow; Glucose Urine UA Negative (Negative); Leukocyte Esterase Urine Small (1+) (Negative); Nitrite Urine Negative (Negative); UMIC TRIGGER UA YES; Urine Blood Negative (Negative); Urine Ketones Negative (Negative); Urine Protein Negative (Neg-Trace)
[2024-09-17 10:51] LABS: Alanine Aminotransferase 22 U/L (0-31); Albumin Level 4.2 g/dL (3.5-5.0); Alkaline Phosphatase 79 U/L (39-117); Anion Gap 13 (12-20); Aspartate Amino Transferase 24 U/L (5-31); Bilirubin Total 0.5 mg/dL (0.0-1.0); Blood Urea Nitrogen 18 mg/dL (9-16); Calcium 9.4 mg/dL (8.4-10.2); Carbon Dioxide 27 mmol/L (22-29); Chloride 97 mmol/L (96-108); Cholesterol 168 mg/dL (<200); Estimated Glomerular Filt Rate > 60; Glucose Fasting 105 mg/dL (60-99); HDL Cholesterol 83 mg/dL (>40); LDL Cholesterol Calculated 75 mg/dL (<100); Potassium 3.7 mmol/L (3.3-5.1); Sodium 133 mmol/L (135-145); Total Protein 7.1 g/dL (6.5-8.0); Triglycerides 52 mg/dL (<150)
[2024-09-17 10:54] LABS: Bacteria Urine None Seen (None Seen); Hyaline Casts Urine 0-2 /LPF (0-2); RBC Urine 0-2 /HPF (0-2); WBC Urine 0-5 /HPF (0-5)
[2024-09-17 10:54] LABS: TSH reflex Free T4 2.67 uIU/mL (0.32-4.0); Vitamin D 25-OH Total 21.1 ng/mL (>30)
[2024-09-17 10:56] LABS: Creatinine Urine 99.04 mg/dL; Microalbum/Creatinine Ratio Ur 30.2 ug/mg cr (<30)
== END 2024-09-17 08:41 | disposition home or self-care (01) ==
LOC: HO.LAB 08:40
PROVIDERS: PCP Family Medicine; Visit Provider Family Medicine
DX: Z00.00 Encounter for general adult medical examination without abnormal findings (principal); I10 Essential (primary) hypertension; E55.9 Vitamin D deficiency, unspecified
CPT/HCPCS: 36415; 80053; 80061; 81001; 81003; 82043; 82306; 82570; 84443; 85025

== ENCOUNTER 2024-09-26 15:46 | Outpatient (AMB) | payer MEDICARE, OTHER, SELFPAY ==
--- NOTE | 2024-09-26 16:00 | A.OFFPC_ITS ---
Vital Signs 09/26/24 16:01 Height 5 ft 1 in Weight 152 lb BMI 28.7 BP 112/60 Blood Pressure Location Rt brachial Position Sitting Respiration 14 Pulse 88 Pulse Source Pulse Oximeter Pulse Oximetry (%) 99 Oxygen Delivery Method Room Air Intake Visit Reasons: cpe follow up labs Intake Note: cpe labs Allergies sulfadiazine Allergy (Unknown, Verified 09/26/24 16:00) itch Medication List - Last Reconciled 09/26/24 by Erik Vogt MD aspirin (Adult Aspirin Regimen) 81 mg PO DAILY atorvastatin 20 mg PO DAILY 90 days betamethasone valerate 0.1% 1 appl topical BID PRN 14 days hydrochlorothiazide 25 mg PO DAILY lisinopril 40 mg PO DAILY 90 days loteprednol etabonate 0.5% (Lotemax) 1 drp ophthalmic (eye) BID metronidazole 0.75% 1 appl topical BEDTIME 30 days Tobacco use date assessed: 05/20/24 Dental Screening Dental Screen Date: 02/16/24 HPI cpe follow up labs HPI Details 74 y/o female presents for an extended e xam with f/u labs and health maintenance. Labs drawn 09/17/24. Reviewed labs with pt. Elevated fasting glucose of 105. Triglycerides 52. TC 168. LDL 75. HDL 83. Low vitamin D of 21.1. Sodium levels mildly low at 133. HPI Comments History of Present Illness Details Documentation assistance for Erik Vogt MD, was provided by Jaime Barbour, Industrial Maintenance Mechanic on 09/26/2024 at 4:44 PM EST. I, Dr. Vogt, have read, observed, and verified documentation. [facility] Medical History No pertinent past medical history Surgical History History of tonsillectomy Social History Housing: House Alcohol intake: current Alcohol intake frequency: a few times a week Patient Tobacco Use Status: Former Tobacco user e-Cigarette/Vaping Use: Never Used Second Hand Smoke Exposure: No service: No Current occupational status: retired Current occupational exposures/hazards: No Cognitive needs: No Hearing needs: No Vision needs: No Questionnaire PHQ-9 Over the last 2 weeks, how often have you been bothered by any of the following problems? 4. Feeling tired or having little energy: not at all 7. Trouble concentrating on things, such as reading the newspaper or watching television: not at all 9. Thoughts that you would be better off or of hurting yourself in some way: not at all Source: Developed by Drs. Vega Pichardo, Faina Tuttle, Shailesh Leach and colleagues, with an educational john from [email or web address]. Thrive Questionnaire Date Thrive assessed: 09/19/24 I am a: Patient What is your living situation today?: I have a steady place to live Within the past 12 months, did the food you bought not last and you didn't have the money to get more?: I choose not to answer this question Within the past 12 months, did you worry whether your food would run out before you got money to buy more?: I choose not to answer this question Do you have trouble paying for medicines?: No Do you have trouble getting transportation to medical appointments?: No Do you have trouble paying your heating and electricity bill?: I choose not to answer this question Do you have trouble taking care of your child, family member or friend?: I choose not to answer this question Do you have trouble with day-to-day activities such as bathing, preparing meals, shopping, managing finances, etc.?: I choose not to answer this question Are you currently unemployed and looking for a job?: I choose not to answer this question Are you interested in more education?: I choose not to answer this question Please select the resources that you would like help with: None Currently or been in a relationship where the following occur: I choose not to answer THRIVE Score: 0 AUDIT C Alcohol Use Questionnaire (AUDIT-C) 1. How often do you have a drink containing alcohol?: Never 3. How often do you have six or more drinks on one occasion?: Never Total Score: 0 CONNIE-7 AMB Questionnaire CONNIE-7 Date CONNIE - 7 assessed: 09/21/23 Feeling nervous, anxious, or on edge: 0 = Not at all Not being able to stop or control worryin = Not at all Worrying too much about different things: 0 = Not at all Trouble relaxin = Not at all Being so restless that it is hard to sit still: 0 = Not at all Becoming easily annoyed or irritable: 0 = Not at all Feeling afraid as if something awful might happen: 0 = Not at all Total CONNIE-7 score (0-4 normal; 5-9 mild; 10-14 moderate; 15-21 severe): 0 Source: Developed by Drs. Vega Pichardo, Faina Tuttle, Shailesh Leach and colleagues, with an educational john from [email or web address]. Review of Systems Const Denies chills, Denies fatigue, Denies fever(s), Denies headache(s) and Denies weakness Eyes Denies change in vision ENT Denies dizziness, Denies headache(s), Denies hearing loss, Denies nasal congestion, Denies sinus pain, Denies sinus pressure and Denies sore throat Card Denies chest pain, Denies lightheadedness, Denies dyspnea and Denies other (palpitations) Resp Denies cough, Denies dyspnea and Denies wheezing GI Denies abdominal pain, Denies melena, Denies hematochezia, Denies change in bowel habits, Denies dyspepsia and Denies nausea Denies hematuria and Denies dysuria Musc Denies abnormal gait, Denies myalgias, Denies arthralgias, Denies numbness and Denies tingling Skin/Breast Denies rash, Denies unusual bruising and Denies wounds Neuro Denies abnormal gait, Denies dizziness, Denies headache(s), Denies memory loss, Denies numbness, Denies Sensory deficit (Neuro), Denies tingling and Denies weakness Psych Denies anxiety, Denies depression and Denies memory loss Endo Denies cold intolerance, Denies fatigue, Denies heat intolerance, Denies polydipsia and Denies polyuria Asa/Lymph Denies easy bleeding and Denies easy bruising Aller/Immun Denies wheezing Physical exam (Primary Care) Vital Signs: Last Vital Signs Pulse 88 09/26/24 16:01 Resp 14 09/26/24 16:01 BP 112/60 09/26/24 16:01 Pulse Ox 99 09/26/24 16:01 Oxygen Delivery Method Room Air 09/26/24 16:01 BMI result Body Mass Index 28.7 Tobacco/Smoking Status: Tobacco use Status Tobacco use date assessed 05/20/24 09/26/24 16:05 Patient Tobacco Use Status Former Tobacco user 09/26/24 16:05 e-Cigarette/Vaping Use Never Used 09/26/24 16:05 Thrive Assessment: Date of Thrive Assessment Date Thrive assessed 09/19/24 09/26/24 16:05 Currently or been in a relationship where the following occur: I choose not to answer Const General: no acute distress, well developed, alert and awake Nutritional Appearance: well nourished Orientation/consciousness: patient oriented x3 HENMT Head: Yes normocephalic and Yes atraumatic Ears: hearing grossly normal bilaterally and TM's normal bilaterally General nose exam: Normal external nose present and Normal nares present Mouth: Normal oral and palatal mucosa present and moist mucous membranes Teeth and gingiva: dentition normal Throat: Yes posterior oropharynx normal Eyes General: appearance normal, both eyes and all related structures Pupils: Equal, round and reactive pupils present and Pupil accommodation reflex normal EOM: EOMs intact bilaterally Neck Neck: Yes normal visual inspection, Yes no lymphadenopathy and Yes trachea midline Thyroid: Thyroid normal Carotids: no bruits Lymphatic: no lymphadenopathy noted Chest Chest palpation & inspection: normal inspection of the chest Resp Effort & Inspection: normal respiratory effort Auscultation: clear to auscultation bilaterally Cardio Rate: regular rate Rhythm: regular rhythm Heart sounds: S1 normal heart sound present, S2 normal heart sound present, no gallops, no murmurs and no rubs Bruits: no abdominal aortic bruits and no carotid bruits GI Palpation (GI): No Abdominal aortic bruit present, Soft to palpation, nontender, No hepatosplenomegaly present and No Rebound tenderness present Auscultation: normal bowel sounds General: Yes no CVA tenderness Back/Spine/Pelvis Back: no CVA tenderness Cervical Spine: cervical ROM normal and No Cervical spine tenderness Thoracic/Lumbar Spine: thoraco-lumbar ROM normal, No pain with thoraco-lumbar ROM, No thoracic spinal tenderness and No lumbar spinal tenderness Skin Lesions: no lesions Rashes: no rashes Trauma: no lacerations or abrasions Wounds: no wounds Nails: normal Neuro General: patient oriented x3 Cranial nerves: Yes Equal, round and reactive pupils present Cognition (Neuro): normal cognition Gait exam (Neuro): Normal gait present Motor exam (neuro): 5/5 motor strength present throughout Sensory Exam: No Sensory deficit (Neuro) Deep tendon reflexes (DTR's): Right patellar reflex intensity grade: 2+ and Left patellar reflex intensity grade: 2+ Extrem General: Yes normal to inspection and No edema Psych Appearance: grossly normal Affect: normal affect Attitude: cooperative Thought process: Normal thought process present Coding Level of Care Code Est Pt Level 4 (83549) Diagnoses Essential hypertension I10 Hyponatremia E87.1 Borderline anemia D64.9 Low vitamin D level R79.89 Breast cancer screening by mammogram Z. Screening for colon cancer Z. Change in hearing H91.90 Adult general medical exam Z00.00 Assessment & Plan Assessment & Plan (1) Essential hypertension: Code(s): I10 - Essential (primary) hypertension Category: Medical Plan: Blood?pressure?is?well?controlled.??Goal?is?less?than?140/90 Continue?current?medications (2) Hyponatremia: Code(s): E87.1 - Hypo-osmolality and hyponatremia Category: Medical Plan: Mild?hyponatremia Encouraged?good?hydration?and?regular?meals We?can?recheck?this?with?next?blood?draw (3) Borderline anemia: Code(s): D64.9 - Anemia, unspecified Category: Medical Plan: Borderline?anemia Other?cell?lines?are?within?normal?limits Will?recheck?with?next?blood?draw (4) Low vitamin D level: Code(s): R79.89 - Other specified abnormal findings of blood chemistry Category: Medical Plan: Vitamin-D?level?is?low.??She?wants?to?try an?jrfg-jch-rfdresh?supplement?and?I?recommended?she?can?use?this?during?winter? months. (5) Breast cancer screening by mammogram: Code(s): Z12. - Encounter for screening mammogram for malignant neoplasm of breast Category: Medical Plan: Patient?declines?mammography (6) Screening for colon cancer: Code(s): Z12.11 - Encounter for screening for malignant neoplasm of colon Category: Medical Plan: Cologuard?2?years?ago?was?negative?for?malignancy She?will?be?due?to?repeat?this?next?year (7) Change in hearing: Code(s): H91.90 - Unspecified hearing loss, unspecified ear Category: Medical Plan: Referred?to?audiology (8) Adult general medical exam: Code(s): Z00.00 - Encounter for general adult medical examination without abnormal findings Category: Medical Plan: 74-year-old?female?presents?for?an?extended?exam Orders: Orders XR DEXA axial skeleton Today M81.0 - Age-related osteoporosis without current pathological fracture Complete Blood Count Auto Diff Today D64.9 - Anemia, unspecified Comprehensive [place]. Panel Fast Today E87.1 - Hypo-osmolality and hyponatremia, Z00.00 - Encounter for general adult medical examination without abnormal findings Vitamin D 25-OH Total Today E55.9 - Vitamin D deficiency, unspecified, R79.89 - Other specified abnormal findings of blood chemistry Microalbumin, Random (w Creat) Today I10 - Essential (primary) hypertension Referrals Audiology Referral H91.90 - Unspecified hearing loss, unspecified ear
[2024-09-26 16:01] VITALS: BP 112/60; PULSE 88; RESP 14; O2SAT 99; BMI 28.7
== END 2024-09-26 16:58 | disposition home or self-care (01) ==
PROVIDERS: PCP Family Medicine; Visit Provider Family Medicine
DX: I10 Essential (primary) hypertension (principal); E87.1 Hypo-osmolality and hyponatremia; D64.9 Anemia, unspecified; R79.89 Other specified abnormal findings of blood chemistry; Z12.31 Encounter for screening mammogram for malignant neoplasm of breast; Z12.11 Encounter for screening for malignant neoplasm of colon; H91.90 Unspecified hearing loss, unspecified ear; Z00.00 Encounter for general adult medical examination without abnormal findings

== ENCOUNTER → 2024-09-26 15:46 | Outpatient (BNVA) | payer MEDICARE, OTHER, SELFPAY | PROVIDERS: PCP Family Medicine; Visit Provider Family Medicine | DX: I10 Essential (primary) hypertension (principal); E87.1 Hypo-osmolality and hyponatremia; D64.9 Anemia, unspecified; R79.89 Other specified abnormal findings of blood chemistry; H91.90 Unspecified hearing loss, unspecified ear | CPT/HCPCS: 99212 ==

== ENCOUNTER 2024-10-30 08:47 | Outpatient (REF) | payer MEDICARE, OTHER, SELFPAY | END 2024-10-30 08:48 | disposition home or self-care (01) | LOC: HO.SH 08:47 | PROVIDERS: Visit Provider Family Medicine | DX: H91.90 Unspecified hearing loss, unspecified ear (principal) | CPT/HCPCS: 92557; 92567 ==

== ENCOUNTER 2024-11-12 07:56 | Outpatient (REF) | payer MEDICARE, OTHER, SELFPAY ==
--- NOTE | ~2024-11-12 | MM_ITS ---
EXAMINATION: DXA BONE DENSITY AXIAL HISTORY: Estrogen deficiency TECHNIQUE: [employer] Dual energy absorptiometry (DEXA) of the lumbar spine, total left hip, and femoral neck was performed. COMPARISON: There are no prior studies for comparison. FINDINGS: The bone mineral density of the lumbar spine is 1.163 with a T-score of -0.1, and a Z-score of 1.5. The bone mineral density of the left total hip is 0.840 with a T-score of -1.3, and a Z-score of 0.2. The bone mineral density of the left femoral neck is 0.741 with a T-score of -1.3, and a Z-score of 0.2. FRACTURE RISK: The FRAX index suggests a risk of major osteoporotic fracture of 13.1%, and of hip fracture 3.2%. MM/XR DEXA axial skeleton IMPRESSION: Based on bone mineral density, and according to World Health Organization (WHO) criteria, the diagnosis is consistent with osteopenia. All bone density values are in grams per centimeter squared. At this facility, the least significant change in BMD with 95% confidence is 0.022 at the lumbar spine, 0.027 at the hip, and 0.023 at the distal 1/3 radius. Electronically signed by: Vega Urbano MD 11/12/2024 08:43 AM [facility]
== END 2024-11-12 07:57 | disposition home or self-care (01) ==
LOC: HO.MAMMO 07:56
PROVIDERS: PCP Family Medicine; Visit Provider Family Medicine
DX: M81.0 Age-related osteoporosis without current pathological fracture (principal)
CPT/HCPCS: 77080

== ENCOUNTER → 2024-11-12 08:15 | Outpatient (BNV) | payer MEDICARE, OTHER, SELFPAY | PROVIDERS: PCP Family Medicine; Visit Provider Radiology Diagnostic Radiology | DX: E28.39 Other primary ovarian failure (principal) | CPT/HCPCS: 77085 ==

== ENCOUNTER 2025-01-20 10:37 | Outpatient (REF) | payer MEDICARE, OTHER, SELFPAY ==
[2025-01-20 10:54] LABS: MANUAL DIFF FLAG NO
[2025-01-20 11:15] LABS: Basophils Absolute Auto 0.1 X10*3/uL (0.0-0.2); Basophils Percent Auto 1.5 % (0-2); Eosinophils Absolute Auto 0.4 X10*3/uL (0.0-0.4); Eosinophils Percent Auto 5.2 % (0-4); Hematocrit 40.7 % (37.0-47.0); Hemoglobin 13.3 g/dl (12.0-16.0); Imm Gran Abs Auto 0.03 X10*3/uL (0.00-0.03); Imm Gran Pct Auto 0.4 % (0.0-0.4); Lymphocytes Absolute Auto 1.2 X10*3/uL (1.2-4.9); Lymphocytes Percent Auto 15.3 % (20-40); Mean Corpuscular HGB Conc 32.7 g/dl (31.0-35.0); Mean Corpuscular Hemoglobin 28.8 pg (27.0-33.0); Mean Corpuscular Volume 88.1 fL (80.0-98.0); Mean Platelet Volume 9.5 fL (9.4-12.3); Monocytes Absolute Auto 0.8 X10*3/uL (0.1-1.2); Monocytes Percent Auto 9.7 % (2-11); Neutrophils Absolute Auto 5.3 x10*3/uL (2.0-8.3); Neutrophils Percent Auto 67.9 % (45-73); Platelet Count 344 X10*3/uL (160-400); Red Blood Count 4.62 X10*6/uL (4.20-5.50); Red Cell Distribution Width 13.1 % (11.0-16.0); White Blood Count 7.8 X10*3/uL (4.8-10.8)
[2025-01-20 11:56] LABS: Alanine Aminotransferase 22 U/L (0-31); Albumin Level 4.4 g/dL (3.5-5.0); Alkaline Phosphatase 81 U/L (39-117); Anion Gap 11 (12-20); Aspartate Amino Transferase 26 U/L (5-31); Bilirubin Total 0.4 mg/dL (0.0-1.0); Blood Urea Nitrogen 15 mg/dL (9-16); Calcium 9.7 mg/dL (8.4-10.2); Carbon Dioxide 28 mmol/L (22-29); Chloride 103 mmol/L (96-108); Estimated Glomerular Filt Rate > 60; Glucose Fasting 99 mg/dL (60-99); Potassium 4.4 mmol/L (3.3-5.1); Sodium 138 mmol/L (135-145); Total Protein 7.5 g/dL (6.5-8.0)
[2025-01-20 11:57] LABS: Appearance Urine Clear; Color Urine Yellow; Glucose Urine UA Negative (Negative); Leukocyte Esterase Urine Negative (Negative); Nitrite Urine Negative (Negative); PH 7.5 (5.0-9.0); Urine Blood Negative (Negative); Urine Ketones Negative (Negative); Urine Protein Negative (Neg-Trace)
[2025-01-20 13:07] LABS: Microalbum/Creatinine Ratio Ur 27.9 ug/mg cr (<30)
== END 2025-01-20 10:38 | disposition home or self-care (01) ==
LOC: HO.LAB 10:37
PROVIDERS: PCP Family Medicine; Visit Provider Family Medicine
DX: Z00.00 Encounter for general adult medical examination without abnormal findings (principal); I10 Essential (primary) hypertension; D64.9 Anemia, unspecified; E55.9 Vitamin D deficiency, unspecified; R79.89 Other specified abnormal findings of blood chemistry; E87.1 Hypo-osmolality and hyponatremia
CPT/HCPCS: 36415; 80053; 81003; 82043; 82306; 82570; 85025

== ENCOUNTER 2025-01-28 10:38 | Outpatient (AMB) | payer MEDICARE, OTHER, SELFPAY ==
--- NOTE | 2025-01-28 10:47 | MHC.PC.OV ---
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 Blood pressure today 140/80, 71p. She is on lisinopril 40mg, HCTZ 25mg daily. BP upon relaxation 136/70. Labs drawn 01/20/25. Reviewed labs with pt. No recent lipid panel. Vitamin D 44.0 ng/mL. She reports hearing changes. She notes she had been recommended hearing aids. HPI Comments History of Present Illness Details Documentation assistance for Erik Vogt MD, was provided by Jaime Barbour,? Relations Specialist on 01/28/2025 at 11:08 AM EST. Valdovinos, Dr. Vogt, have read, observed, and verified documentation. ?? [facility] Medical History No pertinent past medical history Surgical History History of tonsillectomy Social History Housing: House Alcohol intake: current Alcohol intake frequency: a few times a week Patient Tobacco Use Status: Former Tobacco user e-Cigarette/Vaping Use: Never Used Second Hand Smoke Exposure: No service: No Current occupational status: retired Current occupational exposures/hazards: No Cognitive needs: No Hearing needs: No Vision needs: No Questionnaire Thrive Questionnaire Date Thrive assessed: 09/19/24 CONNIE-7 AMB Questionnaire CONNIE-7 Date CONNIE - 7 assessed: 09/21/23 Source: Developed by Drs. Vega Pichardo, Faina Tuttle, Shailesh Leach and colleagues, with an educational john from [employer]. Physical exam (Primary Care) Vital Signs: Last Vital Signs Temp 97.5 F 01/28/25 10:51 Pulse 71 01/28/25 10:51 Resp 14 01/28/25 10:51 BP 136/70 01/28/25 11:02 Pulse Ox 96 01/28/25 10:51 Oxygen Delivery Method Room Air 01/28/25 10:51 BMI result Body Mass Index 28.7 Tobacco/Smoking Status: Tobacco use Status Tobacco use date assessed 05/20/24 01/28/25 10:58 Patient Tobacco Use Status Former Tobacco user 01/28/25 10:58 e-Cigarette/Vaping Use Never Used 01/28/25 10:58 Thrive Assessment: Date of Thrive Assessment Date Thrive assessed 09/19/24 01/28/25 10:58 Coding Level of Care Code Est Pt Level 3 (59467) Diagnoses Essential hypertension I10 Low vitamin D level R79.89 Change in hearing H91.90 Assessment & Plan Assessment & Plan (1) Essential hypertension: Code(s): I10 - Essential (primary) hypertension Category: Medical Plan: Blood?pressure?is?controlled.??Goal?is?less?than?140/90 Continue?current?medications (2) Low vitamin D level: Code(s): R79.89 - Other specified abnormal findings of blood chemistry Category: Medical Plan: Vitamin-D?was?low?and?she?is?now?in?a?supplement.??Now?within?normal?range Continue?vitamin-D?supplement (3) Change in hearing: Code(s): H91.90 - Unspecified hearing loss, unspecified ear Category: Medical Plan: Audiogram?shows?I?hearing?loss?with?conductive?component?and?recommended?a?referral?to?ENT Referred Also?recommended?trial?of?hearing?aids?but?patient?wants?to?hold?off?on?this.??She?can?discuss?with?ENT?as?well Orders: Referrals Ear/Nose/Throat Referral H91.90 - Unspecified hearing loss, unspecified ear
[2025-01-28 10:51] VITALS: BP 140/80; PULSE 71; RESP 14; TEMP 36.4; O2SAT 96; BMI 28.7
[2025-01-28 11:02] VITALS: BP 136/70
== END 2025-01-28 11:14 | disposition home or self-care (01) ==
LOC: HO.HMCFM 10:38
PROVIDERS: PCP Family Medicine; Visit Provider Family Medicine
DX: I10 Essential (primary) hypertension (principal); R79.89 Other specified abnormal findings of blood chemistry; H91.90 Unspecified hearing loss, unspecified ear

== ENCOUNTER → 2025-01-28 10:38 | Outpatient (BNVA) | payer MEDICARE, OTHER, SELFPAY | PROVIDERS: PCP Family Medicine; Visit Provider Family Medicine | DX: I10 Essential (primary) hypertension (principal); R79.89 Other specified abnormal findings of blood chemistry; H91.90 Unspecified hearing loss, unspecified ear | CPT/HCPCS: 99212 ==

== ENCOUNTER 2025-03-31 15:28 | Outpatient (AMB) | payer MEDICARE, OTHER, SELFPAY ==
--- NOTE | 2025-03-31 15:34 | MHC.PC.OV ---
Vital Signs 03/31/25 15:38 Height 5 ft 1 in Weight 147 lb 8 oz BMI 27.9 BP 132/68 Blood Pressure Location Rt brachial Position Sitting Respiration 14 Pulse 94 Pulse Source Pulse Oximeter Temp 97.9 F Temp Source Temporal Artery Scan Pulse Oximetry (%) 96 Oxygen Delivery Method Room Air Intake Visit Reasons: Rash Intake Note: Julienne presents in the office today for a rash on her chest arms and legs. Itches, hurts from scratching. Allergies sulfadiazine Allergy (Unknown, Verified 03/31/25 15:36) itch Tobacco use date assessed: 03/31/25 Fall risk assessment: No Falls in past year Last assessed Fall Risk: 03/31/25 Dental Screening Dental Screen Date: 03/31/25 Did you have a dental visit in the last 12 months?: No Did you have a dental problem in the last 6 months where you did not have access to dental care?: No Was dental information given to patient?: Patient has dentist HPI HPI Comments History of Present Illness Details 75-year-old female with a past medical history of prediabetes, hyperlipidemia and hypertension presents for evaluation of a skin rash. Last Monday she was doing work on her back porch cleaning, and there was a lot of dust and pollen. The next day she developed a red, itchy rash on her legs which spread to her face, arms, stomach and back. She tried Benadryl cream which helps with the itching temporarily, but it does not make the rash go away. No fevers or chills. No new medications or other environmental exposures to the patient's knowledge. She had 1 similar occurrence in the past. ROS: Constitutional: No fevers or chills Eyes: No vision changes, blurry vision, double vision, eye pain, eye redness, eye discharge. ENT: No hearing loss, sneezing, congestion, runny nose or sore throat. Respiratory: No shortness of breath, cough or sputum production. Physical exam: Constitutional: Alert, in no distress. Ear, Nose and Throat: Canals clear. TMs normal. Normal nasal mucosa. No nasal discharge. No oral lesions. Neck: Supple, Full range of motion. No lymphadenopathy. Respiratory: Clear to auscultation. Cardiovascular: S1 S2 regular. No murmurs. Skin: Erythematous, papular rash on the arms, chest, stomach, back and thighs and forehead. Lesions are excoriated. [facility], [facility] Medical History (Updated 03/31/25 @ 17:31 by KEN Lentz) Dermatitis No pertinent past medical history Surgical History History of tonsillectomy Social History (Updated 03/31/25 @ 15:37 by Jyoti Howard MA) Housing: House Alcohol intake: current Alcohol intake frequency: a few times a week Patient Tobacco Use Status: Former Tobacco user e-Cigarette/Vaping Use: Never Used Second Hand Smoke Exposure: No Use of substances other than those prescribed or required for medical reasons: No service: No Current occupational status: retired Current occupational exposures/hazards: No Cognitive needs: No Hearing needs: No Vision needs: No Questionnaire Thrive Questionnaire Date Thrive assessed: 01/28/25 I am a: Patient What is your living situation today?: I choose not to answer this question Within the past 12 months, did the food you bought not last and you didn't have the money to get more?: I choose not to answer this question Within the past 12 months, did you worry whether your food would run out before you got money to buy more?: I choose not to answer this question Do you have trouble paying for medicines?: I choose not to answer this question Do you have trouble getting transportation to medical appointments?: I choose not to answer this question Do you have trouble paying your heating and electricity bill?: I choose not to answer this question Do you have trouble taking care of your child, family member or friend?: I choose not to answer this question Do you have trouble with day-to-day activities such as bathing, preparing meals, shopping, managing finances, etc.?: I choose not to answer this question Are you currently unemployed and looking for a job?: I choose not to answer this question Are you interested in more education?: I choose not to answer this question Please select the resources that you would like help with: None Currently or been in a relationship where the following occur: I choose not to answer THRIVE Score: 0 CONNIE-7 AMB Questionnaire CONNIE-7 Date CONNIE - 7 assessed: 09/21/23 Feeling nervous, anxious, or on edge: 0 = Not at all Not being able to stop or control worryin = Not at all Worrying too much about different things: 0 = Not at all Trouble relaxin = Not at all Being so restless that it is hard to sit still: 0 = Not at all Becoming easily annoyed or irritable: 0 = Not at all Feeling afraid as if something awful might happen: 0 = Not at all Total CONNIE-7 score (0-4 normal; 5-9 mild; 10-14 moderate; 15-21 severe): 0 Source: Developed by Drs. Vega Pichardo, Faina Tuttle, Shailesh Leach and colleagues, with an educational john from [employer]. Physical exam (Primary Care) Vital Signs: Last Vital Signs Temp 97.9 F 03/31/25 15:38 Pulse 94 03/31/25 15:38 Resp 14 03/31/25 15:38 BP 132/68 03/31/25 15:38 Pulse Ox 96 03/31/25 15:38 Oxygen Delivery Method Room Air 03/31/25 15:38 BMI result Body Mass Index 27.9 Tobacco/Smoking Status: Tobacco use Status Tobacco use date assessed 03/31/25 03/31/25 15:40 Patient Tobacco Use Status Former Tobacco user 03/31/25 15:40 e-Cigarette/Vaping Use Never Used 03/31/25 15:40 Thrive Assessment: Date of Thrive Assessment Date Thrive assessed 01/28/25 03/31/25 15:40 Currently or been in a relationship where the following occur: I choose not to answer Coding Level of Care Code Est Pt Level 3 (78805) Complex EM visit Add On G2211 Diagnoses Dermatitis L30.9 Assessment & Plan Assessment & Plan (1) Dermatitis: Code(s): L30.9 - Dermatitis, unspecified Category: Medical Plan: Given widespread distribution I will treat her with oral prednisone. Side effects and administration reviewed. She will take this in the morning. Advised to wash the clothes she was wearing when she cleans the porch the day before the rash started. She can use Sarna lotion and oatmeal baths. Start Zyrtec 10 mg nightly. Continue this for 2-3 weeks after completing prednisone and then try discontinue it if rash has not returned. Call the office if symptoms do not resolve. Medications: New prednisone orally daily; Take 3 tabs po qam x 3 days, then take 2 tabs po qam x 3 days, then take 1 tab po qam x 3 days 18 tabs 0RF cetirizine 10 mg PO BEDTIME 30 tabs 0RF
[2025-03-31 15:38] VITALS: BP 132/68; PULSE 94; RESP 14; TEMP 36.6; O2SAT 96; BMI 27.9
== END 2025-03-31 16:00 | disposition home or self-care (01) ==
LOC: HO.HMCFM 15:29
PROVIDERS: PCP Family Medicine; Visit Provider Physician Assistant Medical
DX: L30.9 Dermatitis, unspecified (principal)

== ENCOUNTER → 2025-03-31 15:28 | Outpatient (BNVA) | payer MEDICARE, OTHER, SELFPAY | PROVIDERS: PCP Family Medicine; Visit Provider Physician Assistant Medical | DX: L30.9 Dermatitis, unspecified (principal); R73.03 Prediabetes; E78.5 Hyperlipidemia, unspecified; I10 Essential (primary) hypertension | CPT/HCPCS: 99212 ==

== ENCOUNTER 2025-05-02 10:39 | Outpatient (AMB) | payer MEDICARE, OTHER, SELFPAY ==
--- NOTE | 2025-05-02 10:59 | A.OFFPC_ITS ---
Vital Signs 05/02/25 11:04 Height 5 ft 1 in Weight 151 lb BMI 28.5 BP 120/60 Blood Pressure Location Lt brachial Position Sitting Respiration 14 Pulse 76 Pulse Source Pulse Oximeter Temp 97.8 F Temp Source Oral Pulse Oximetry (%) 95 Oxygen Delivery Method Room Air Intake Visit Reasons: f/u HTN, chronic conditions Intake Note: patient is scheduled for htn and chronic condition review Network Coordinator Required: No Allergies sulfadiazine Allergy (Unknown, Verified 05/02/25 11:03) itch Medication List - Last Reconciled 05/02/25 by Erik Vogt MD aspirin (Adult Aspirin Regimen) 81 mg PO DAILY atorvastatin 20 mg PO DAILY 90 days cetirizine 10 mg PO BEDTIME hydrochlorothiazide 25 mg PO DAILY lisinopril 40 mg PO DAILY 90 days prednisone orally daily; Take 3 tabs po qam x 3 days, then take 2 tabs po qam x 3 days, then take 1 tab po qam x 3 days Tobacco use date assessed: 03/31/25 Dental Screening Dental Screen Date: 03/31/25 HPI f/u HTN, chronic conditions HPI Details 75 y/o female presents to f/u HTN, chron ic conditions. Blood pressure today 120/60, 76p. She is on lisinopril 40mg, HCTZ 25mg daily. Recent visit for dermatitis in March - ongoing symptoms on her body. Also notes rash on scalp. Was treated with oral prednisone. [facility] Medical History (Updated 05/02/25 @ 11:38 by Jaime Barbour) Dermatitis No pertinent past medical history Surgical History History of tonsillectomy Social History (Updated 03/31/25 @ 15:37 by Jyoti Howard MA) Housing: House Alcohol intake: current Alcohol intake frequency: a few times a week Patient Tobacco Use Status: Former Tobacco user e-Cigarette/Vaping Use: Never Used Second Hand Smoke Exposure: No service: No Current occupational status: retired Current occupational exposures/hazards: No Cognitive needs: No Hearing needs: No Vision needs: No Questionnaire Thrive Questionnaire Date Thrive assessed: 01/28/25 I am a: Patient What is your living situation today?: I choose not to answer this question Within the past 12 months, did the food you bought not last and you didn't have the money to get more?: I choose not to answer this question Within the past 12 months, did you worry whether your food would run out before you got money to buy more?: I choose not to answer this question Do you have trouble paying for medicines?: I choose not to answer this question Do you have trouble getting transportation to medical appointments?: I choose not to answer this question Do you have trouble paying your heating and electricity bill?: I choose not to answer this question Do you have trouble taking care of your child, family member or friend?: I choose not to answer this question Do you have trouble with day-to-day activities such as bathing, preparing meals, shopping, managing finances, etc.?: I choose not to answer this question Are you currently unemployed and looking for a job?: I choose not to answer this question Are you interested in more education?: I choose not to answer this question Please select the resources that you would like help with: None Currently or been in a relationship where the following occur: I choose not to answer THRIVE Score: 0 CONNIE-7 AMB Questionnaire CONNIE-7 Date CONNIE - 7 assessed: 09/21/23 Source: Developed by Drs. Vega Pichardo, Faina Tuttle, Shailesh Leach and colleagues, with an educational john from [employer]. Review of Systems Const Denies chills, Denies fatigue, Denies fever(s), Denies headache(s) and Denies weakness ENT Denies dizziness and Denies headache(s) Card Denies dyspnea Resp Denies cough, Denies dyspnea, Denies wheezing and Denies other (shortness of breath) Musc Denies numbness and Denies tingling Neuro Denies dizziness, Denies headache(s), Denies numbness, Denies tingling and Den ies weakness Psych Denies anxiety and Denies depression Endo Denies fatigue Aller/Immun Denies wheezing Physical exam (Primary Care) Vital Signs: Last Vital Signs Temp 97.8 F 05/02/25 11:04 Pulse 76 05/02/25 11:04 Resp 14 05/02/25 11:04 BP 120/60 05/02/25 11:04 Pulse Ox 95 05/02/25 11:04 Oxygen Delivery Method Room Air 05/02/25 11:04 BMI result Body Mass Index 28.5 Tobacco/Smoking Status: Tobacco use Status Tobacco use date assessed 03/31/25 05/02/25 11:00 Patient Tobacco Use Status Former Tobacco user 05/02/25 11:00 e-Cigarette/Vaping Use Never Used 05/02/25 11:00 Thrive Assessment: Date of Thrive Assessment Date Thrive assessed 01/28/25 05/02/25 11:00 Currently or been in a relationship where the following occur: I choose not to answer Const General: well developed; No acute distress Nutritional Appearance: well nourished Orientation/consciousness: patient oriented x3 HENMT Head: Yes normocephalic and Yes atraumatic Eyes General: appearance normal, both eyes and all related structures Pupils: Equal, round and reactive pupils present EOM: EOMs intact bilaterally Resp Effort & Inspection: normal respiratory effort Auscultation: clear to auscultation bilaterally Cardio Rate: regular rate Rhythm: regular rhythm Heart sounds: S1 normal heart sound present, S2 normal heart sound present, no gallops, no murmurs and no rubs Neuro General: patient oriented x3 and gait normal Cranial nerves: Yes Equal, round and reactive pupils present Psych Affect: normal affect Coding Level of Care Code Est Pt Level 3 (36296) Diagnoses Essential hypertension I10 Dermatitis L30.9 Rash R21 Assessment & Plan Assessment & Plan (1) Essential hypertension: Code(s): I10 - Essential (primary) hypertension Category: Medical Plan: Blood pressure is well controlled. Goal is less than 140/90 Continue current medication (2) Dermatitis: Code(s): L30.9 - Dermatitis, unspecified Category: Medical (3) Rash: Code(s): R21 - Rash and other nonspecific skin eruption Category: Medical Plan Patient has a dermatitis type rash on her body and has a scalp rash which appears likely fungal. Possible id reaction on her torso Will treat the underlying condition with a ketoconazole shampoo on scalp He can continue cetirizine and moisturizing lotion She will let me know if this is not improving over next couple weeks. Would refer to dermatology Medications: New ketoconazole 1% 1 appl topical Q3D 125 mL 0RF 12 days
[2025-05-02 11:04] VITALS: BP 120/60; PULSE 76; RESP 14; TEMP 36.6; O2SAT 95; BMI 28.5
== END 2025-05-02 11:37 | disposition home or self-care (01) ==
LOC: HO.HMCFM 10:40
PROVIDERS: PCP Family Medicine; Visit Provider Family Medicine
DX: I10 Essential (primary) hypertension (principal); L30.9 Dermatitis, unspecified; R21 Rash and other nonspecific skin eruption

== ENCOUNTER → 2025-05-02 10:39 | Outpatient (BNVA) | payer MEDICARE, OTHER, SELFPAY | PROVIDERS: PCP Family Medicine; Visit Provider Family Medicine | DX: I10 Essential (primary) hypertension (principal); L30.9 Dermatitis, unspecified; R21 Rash and other nonspecific skin eruption | CPT/HCPCS: 99212 ==

== ENCOUNTER 2025-05-30 11:33 | Outpatient (AMB) | payer MEDICARE, OTHER, SELFPAY ==
--- NOTE | 2025-05-30 11:36 | MHC.PC.OV ---
Vital Signs 05/30/25 11:39 05/30/25 12:23 Height 5 ft 1 in Weight 148 lb 4 oz BMI 28.0 BP 185/74 H 160/80 H Blood Pressure Location Lt brachial Position Sitting Respiration 13 Pulse 93 Pulse Source Pulse Oximeter Temp 96.6 F L Temp Source Temporal Artery Scan Pulse Oximetry (%) 98 Oxygen Delivery Method Room Air Intake Visit Reasons: Rash chest/neck Intake Note: Patient c/o itchy rash around neck and chest. 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 Allergies sulfadiazine Allergy (Unknown, Verified 05/30/25 11:37) itch Medication List - Last Reconciled 05/30/25 by Erik Vogt MD aspirin (Adult Aspirin Regimen) 81 mg PO DAILY atorvastatin 20 mg PO DAILY 90 days betamethasone dipropionate 0.05% 1 appl topical BID PRN 10 days cetirizine 10 mg PO BEDTIME hydrochlorothiazide 25 mg PO DAILY ketoconazole 1% 1 appl topical Q3D 12 days lisinopril 40 mg PO DAILY 90 days prednisone orally daily; Take 3 tabs po qam x 3 days, then take 2 tabs po qam x 3 days, then take 1 tab po qam x 3 days Tobacco use date assessed: 05/30/25 Fall risk assessment: No Falls in past year Last assessed Fall Risk: 05/30/25 Dental Screening Dental Screen Date: 05/30/25 Did you have a dental visit in the last 12 months?: Yes Did you have a dental problem in the last 6 months where you did not have access to dental care?: No Was dental information given to patient?: Patient has dentist HPI Rash chest/neck HPI Details 75 y/o female presents to f.u rash on chest/neck. Rash seems to be intermittent. She notes prednisone had helped in the past. [facility] Medical History (Updated 05/30/25 @ 12:21 by Erik Vogt MD) Dermatitis No pertinent past medical history Surgical History History of tonsillectomy Social History (Updated 03/31/25 @ 15:37 by Jyoti Howard MA) Housing: House Alcohol intake: current Alcohol intake frequency: a few times a week Patient Tobacco Use Status: Former Tobacco user e-Cigarette/Vaping Use: Never Used Second Hand Smoke Exposure: No service: No Current occupational status: retired Current occupational exposures/hazards: No Cognitive needs: No Hearing needs: No Vision needs: No Questionnaire Thrive Questionnaire Date Thrive assessed: 01/28/25 I am a: Patient What is your living situation today?: I choose not to answer this question Within the past 12 months, did the food you bought not last and you didn't have the money to get more?: I choose not to answer this question Within the past 12 months, did you worry whether your food would run out before you got money to buy more?: I choose not to answer this question Do you have trouble paying for medicines?: I choose not to answer this question Do you have trouble getting transportation to medical appointments?: I choose not to answer this question Do you have trouble paying your heating and electricity bill?: I choose not to answer this question Do you have trouble taking care of your child, family member or friend?: I choose not to answer this question Do you have trouble with day-to-day activities such as bathing, preparing meals, shopping, managing finances, etc.?: I choose not to answer this question Are you currently unemployed and looking for a job?: I choose not to answer this question Are you interested in more education?: I choose not to answer this question Please select the resources that you would like help with: None Currently or been in a relationship where the following occur: I choose not to answer THRIVE Score: 0 CONNIE-7 AMB Questionnaire CONNIE-7 Date CONNIE - 7 assessed: 09/21/23 Source: Developed by Drs. Vega Pichardo, Faina Tuttle, Shailesh Leach and colleagues, with an educational john from [facility]. Review of Systems Const Denies chills, Denies fatigue, Denies fever(s), Denies headache(s) and Denies weakness ENT Denies dizziness and Denies headache(s) Card Denies dyspnea Resp Denies cough, Denies dyspnea, Denies wheezing and Denies other (shortness of breath) Musc Denies numbness and Denies tingling Skin/Breast Reports rash Neuro Denies dizziness, Denies headache(s), Denies numbness, Denies tingling and Denies weakness Psych Denies anxiety and Denies depression Endo Denies fatigue Aller/Immun Denies wheezing Physical exam (Primary Care) Vital Signs: Last Vital Signs Temp 96.6 F L 05/30/25 11:39 Pulse 93 05/30/25 11:39 Resp 13 05/30/25 11:39 BP 185/74 H 05/30/25 11:39 Pulse Ox 98 05/30/25 11:39 Oxygen Delivery Method Room Air 05/30/25 11:39 BMI result Body Mass Index 28.0 Tobacco/Smoking Status: Tobacco use Status Tobacco use date assessed 05/30/25 05/30/25 11:42 Patient Tobacco Use Status Former Tobacco user 05/30/25 11:42 e-Cigarette/Vaping Use Never Used 05/30/25 11:42 Thrive Assessment: Date of Thrive Assessment Date Thrive assessed 01/28/25 05/30/25 11:42 Currently or been in a relationship where the following occur: I choose not to answer Const General: well developed; No acute distress Nutritional Appearance: well nourished Orientation/consciousness: patient oriented x3 HENMT Head: Yes normocephalic and Yes atraumatic Eyes General: appearance normal, both eyes and all related structures Pupils: Equal, round and reactive pupils present EOM: EOMs intact bilaterally Resp Effort & Inspection: normal respiratory effort Neuro General: patient oriented x3 and gait normal Cranial nerves: Yes Equal, round and reactive pupils present Psych Affect: normal affect Coding Level of Care Code Est Pt Level 4 (81819) Diagnoses Rash R21 Essential hypertension I10 Assessment & Plan Assessment & Plan (1) Rash: Code(s): R21 - Rash and other nonspecific skin eruption Category: Medical Plan: Ongoing rash at nape of neck, upper chest and also on scalp. Had given her a steroid taper before and says that it was nearly resolved. Initially denies any exposures. She does note that she does get her hair dyed. She is uncertain if the timing coincides with getting her hair dyed however. Had given her a script for ketoconazole as she does have a little bit of scale at the nape of her neck and scalp. She can try this, however more likely an allergic type reaction Continue cetirizine. She can use some Benadryl at night for the next week. Hydrate well. Will give her a prednisone taper Have referred her to Dermatology but her appointment is in February. As it seems to be allergic, will refer her to immunology Will also give her a topical for local areas of rash and itch. (2) Essential hypertension: Code(s): I10 - Essential (primary) hypertension Category: Medical Plan: Blood pressure quite high on presentation and does decrease though still elevated. Likely secondary to itch and irritation/discomfort. Continue current blood pressure medications Will treat itch and irritation Follow-up in a month Orders: Referrals Allergy & Immunology Referral R21 - Rash and other nonspecific skin eruption, T78.40XA - Allergy, unspecified, initial encounter Medications: New betamethasone dipropionate 0.05% 1 appl topical BID PRN 45 grams 0RF skin irritation 10 days Refilled prednisone orally daily; Take 3 tabs po qam x 3 days, then take 2 tabs po qam x 3 days, then take 1 tab po qam x 3 days 18 tabs 0RF
[2025-05-30 11:39] VITALS: BP 185/74; PULSE 93; RESP 13; TEMP 35.9; O2SAT 98; BMI 28.0
[2025-05-30 12:23] VITALS: BP 160/80
== END 2025-05-30 12:29 | disposition home or self-care (01) ==
LOC: HO.HMCFM 11:34
PROVIDERS: PCP Family Medicine; Visit Provider Family Medicine
DX: R21 Rash and other nonspecific skin eruption (principal); I10 Essential (primary) hypertension

== ENCOUNTER → 2025-05-30 11:33 | Outpatient (BNVA) | payer MEDICARE, OTHER, SELFPAY | PROVIDERS: PCP Family Medicine; Visit Provider Family Medicine | DX: R21 Rash and other nonspecific skin eruption (principal); I10 Essential (primary) hypertension | CPT/HCPCS: 99212 ==

== ENCOUNTER 2025-07-02 11:13 | Outpatient (REF) | payer MEDICARE, OTHER, SELFPAY ==
[2025-07-02 14:37] LABS: Hematocrit 36.6 % (37.0-47.0); Hemoglobin 12.4 g/dl (12.0-16.0); Imm Gran Abs Auto 0.05 X10*3/uL (0.00-0.03); Imm Gran Pct Auto 0.6 % (0.0-0.4); Lymphocytes Absolute Auto 1.0 X10*3/uL (1.2-4.9); MANUAL DIFF FLAG NO; Mean Corpuscular HGB Conc 33.9 g/dl (31.0-35.0); Mean Corpuscular Hemoglobin 29.2 pg (27.0-33.0); Mean Corpuscular Volume 86.3 fL (80.0-98.0); NRBC Abs Auto 0.000 X10*3/uL (0.0-0.012); NRBC Pct Auto 0.0 /100WBC (0.0-0.2); Platelet Count 439 X10*3/uL (160-400); Red Blood Count 4.24 X10*6/uL (4.20-5.50); White Blood Count 8.0 X10*3/uL (4.8-10.8)
[2025-07-02 15:21] LABS: Alanine Aminotransferase 17 U/L (0-31); Albumin Level 4.4 g/dL (3.5-5.0); Alkaline Phosphatase 79 U/L (39-117); Anion Gap 15 (12-20); Aspartate Amino Transferase 25 U/L (5-31); Blood Urea Nitrogen 15 mg/dL (9-16); Calcium 9.5 mg/dL (8.4-10.2); Carbon Dioxide 26 mmol/L (22-29); Chloride 95 mmol/L (96-108); Estimated Glomerular Filt Rate > 60; Potassium 3.7 mmol/L (3.3-5.1); Sodium 132 mmol/L (135-145); Total Protein 7.2 g/dL (6.5-8.0)
[2025-07-21 09:19] LABS: Histamine Release <16 % (<16); TSH 2.57 mIU/L (0.40-4.50); Thyroglobulin Abs <1 IU/mL (< OR = 1)
== END 2025-07-02 11:14 | disposition home or self-care (01) ==
LOC: HO.WFDLDS 11:13
PROVIDERS: Visit Provider Nurse Practitioner Family
DX: L50.2 Urticaria due to cold and heat (principal)
CPT/HCPCS: 36415; 80053; 84443; 85025; 86343; 86376; 86800

== ENCOUNTER 2025-07-09 10:24 | Outpatient (AMB) | payer MEDICARE, OTHER, SELFPAY ==
--- NOTE | 2025-07-09 10:33 | MHC.PC.OV ---
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 Dx: I10. Daily As directed, 999 days/lifetime cetirizine 10 mg PO BEDTIME 90 days hydrochlorothiazide 25 mg PO DAILY ketoconazole 1% 1 appl topical Q3D 12 days lisinopril 40 mg PO DAILY 90 days lisinopril-hydrochlorothiazide 20-25 mg 2 tabs PO DAILY 90 days Tobacco use date assessed: 07/09/25 Fall risk assessment: No Falls in past year Last assessed Fall Risk: 07/09/25 Dental Screening Dental Screen Date: 07/09/25 Did you have a dental visit in the last 12 months?: No Did you have a dental problem in the last 6 months where you did not have access to dental care?: No Was dental information given to patient?: Patient has dentist HPI f/u HTN, rash HPI Details 75 y/o female presents to f/u HTN, rash. Blood pressure today 186/74, 77p. She is on lisinopril 40mg, HCTZ 25mg daily. Complaints of ongoing allergic reaction/rash. [facility] Medical History (Updated 05/30/25 @ 12:21 by Erik Vogt MD) Dermatitis No pertinent past medical history Surgical History History of tonsillectomy Social History (Updated 03/31/25 @ 15:37 by Jyoti Howard MA) Housing: House Alcohol intake: current Alcohol intake frequency: a few times a week Patient Tobacco Use Status: Former Tobacco user e-Cigarette/Vaping Use: Never Used Second Hand Smoke Exposure: No Patient : No service: No Current occupational status: retired Current occupational exposures/hazards: No Cognitive needs: No Hearing needs: No Vision needs: No Questionnaire Thrive Questionnaire Date Thrive assessed: 01/28/25 I am a: Patient What is your living situation today?: I choose not to answer this question Within the past 12 months, did the food you bought not last and you didn't have the money to get more?: I choose not to answer this question Within the past 12 months, did you worry whether your food would run out before you got money to buy more?: I choose not to answer this question Do you have trouble paying for medicines?: I choose not to answer this question Do you have trouble getting transportation to medical appointments?: I choose not to answer this question Do you have trouble paying your heating and electricity bill?: I choose not to answer this question Do you have trouble taking care of your child, family member or friend?: I choose not to answer this question Do you have trouble with day-to-day activities such as bathing, preparing meals, shopping, managing finances, etc.?: I choose not to answer this question Are you currently unemployed and looking for a job?: I choose not to answer this question Are you interested in more education?: I choose not to answer this question Please select the resources that you would like help with: None Currently or been in a relationship where the following occur: I choose not to answer THRIVE Score: 0 CONNIE-7 AMB Questionnaire CONNIE-7 Date CONNIE - 7 assessed: 09/21/23 Source: Developed by Drs. Vega Pichardo, Faina Tuttle, Shailesh Leach and colleagues, with an educational john from [employer]. Review of Systems Const Denies chills, Denies fatigue, Denies fever(s), Denies headache(s) and Denies weakness ENT Denies dizziness and Denies headache(s) Card Denies dyspnea Resp Denies cough, Denies dyspnea, Denies wheezing and Denies other (shortness of breath) Musc Denies numbness and Denies tingling Neuro Denies dizziness, Denies headache(s), Denies numbness, Denies tingling and Denies weakness Psych Denies anxiety and Denies depression Endo Denies fatigue Aller/Immun Denies wheezing Physical exam (Primary Care) Vital Signs: Last Vital Signs Temp 98.0 F 07/09/25 10:43 Pulse 77 07/09/25 10:43 Resp 16 07/09/25 10:43 BP 186/74 H 07/09/25 10:43 Pulse Ox 99 07/09/25 10:43 Oxygen Delivery Method Room Air 07/09/25 10:43 BMI result Body Mass Index 28.4 Tobacco/Smoking Status: Tobacco use Status Tobacco use date assessed 07/09/25 07/09/25 10:42 Patient Tobacco Use Status Former Tobacco user 07/09/25 10:34 e-Cigarette/Vaping Use Never Used 07/09/25 10:34 Thrive Assessment: Date of Thrive Assessment Date Thrive assessed 01/28/25 07/09/25 10:34 Currently or been in a relationship where the following occur: I choose not to answer Const General: well developed; No acute distress Nutritional Appearance: well nourished Orientation/consciousness: patient oriented x3 HENMT Head: Yes normocephalic and Yes atraumatic Eyes General: appearance normal, both eyes and all related structures Pupils: Equal, round and reactive pupils present EOM: EOMs intact bilaterally Resp Effort & Inspection: normal respiratory effort Neuro General: patient oriented x3 and gait normal Cranial nerves: Yes Equal, round and reactive pupils present Psych Affect: normal affect Coding Level of Care Code Est Pt Level 3 (07120) Diagnoses Essential hypertension I10 Allergic reaction T78.40XA Assessment & Plan Assessment & Plan (1) Essential hypertension: Code(s): I10 - Essential (primary) hypertension Category: Medical Plan: Blood pressure is too high. Goal is less than 140/90. Blood pressures at home are high as well Will continue lisinopril 40 mg and increase hydrochlorothiazide to 50 mg daily She will come back later this week or early next week for nurse visit to recheck her blood pressures Follow-up with me in 1 month If still elevated, we discussed today that he should consider another medication such as spironolactone (2) Allergic reaction: Code(s): T78.40XA - Allergy, unspecified, initial encounter Category: Medical Plan: Ongoing allergic reaction which is mildly improved She notes that it is resolved when she is on a prednisone taper She now has an master dyer and they have started testing. She is using hypoallergenic pillow case and mattress covers She continues cetirizine I recommended a HEPA filter in her bedroom Follow-up with immunology She also has an appointment with Dermatology in February Medications: New lisinopril-hydrochlorothiazide 20-25 mg 2 tabs PO DAILY 180 tabs 2RF 90 days Changed From cetirizine 10 mg PO BEDTIME 90 tabs 0RF To cetirizine 10 mg PO BEDTIME 90 tabs 3RF 90 days
[2025-07-09 10:43] VITALS: BP 186/74; PULSE 77; RESP 16; TEMP 36.7; O2SAT 99; BMI 28.4
== END 2025-07-09 11:06 | disposition home or self-care (01) ==
LOC: HO.HMCFM 10:25
PROVIDERS: PCP Family Medicine; Visit Provider Family Medicine
DX: I10 Essential (primary) hypertension (principal); T78.40XA Allergy, unspecified, initial encounter

== ENCOUNTER → 2025-07-09 10:24 | Outpatient (BNVA) | payer MEDICARE, OTHER, SELFPAY | PROVIDERS: PCP Family Medicine; Visit Provider Family Medicine | DX: I10 Essential (primary) hypertension (principal); R21 Rash and other nonspecific skin eruption; T78.40XA Allergy, unspecified, initial encounter | CPT/HCPCS: 99212 ==

== ENCOUNTER 2025-09-05 13:42 | Outpatient (AMB) | payer MEDICARE, OTHER, SELFPAY ==
--- NOTE | 2025-09-05 13:48 | MHC.PC.OV ---
Vital Signs 09/05/25 13:55 Height 5 ft 1 in Weight 150 lb 2 oz BMI 28.4 BP 128/68 Blood Pressure Location Rt brachial Position Sitting Respiration 15 Pulse 87 Pulse Source Pulse Oximeter Temp 97.7 F Temp Source Temporal Artery Scan Pulse Oximetry (%) 98 Oxygen Delivery Method Room Air Intake Visit Reasons: f/u HTN Intake Note: Julienne presents in the office today for hypertension. Allergies sulfadiazine Allergy (Unknown, Verified 09/05/25 13:53) itch Medication List - Last Reconciled 09/05/25 by Erik Vogt MD aspirin (Adult Aspirin Regimen) 81 mg PO DAILY atorvastatin 20 mg PO DAILY 90 days betamethasone dipropionate 0.05% 1 appl topical BID PRN 10 days blood pressure monitor Automatic, Digital. Dx: I10. Daily As directed, 999 days/lifetime cetirizine 10 mg PO BEDTIME 90 days ketoconazole 1% 1 appl topical Q3D 12 days lisinopril-hydrochlorothiazide 20-25 mg 2 tabs PO DAILY 90 days mometasone 0.1% 1 appl topical DAILY tapinarof 1% 1 appl topical DAILY Tobacco use date assessed: 09/05/25 Fall risk assessment: No Falls in past year Last assessed Fall Risk: 09/05/25 Dental Screening Dental Screen Date: 09/05/25 Did you have a dental visit in the last 12 months?: No Did you have a dental problem in the last 6 months where you did not have access to dental care?: No Was dental information given to patient?: Patient declined HPI f/u HTN HPI Details 75 y/o female presents to f.u HTN. Had increased BP meds at prior visit. BP today 128/68, 87p. She is on lisinopril-HCTZ 20-25mg daily. Hx of prediabetes. A1c today 5.5%. HPI Comments History of Present Illness Details Documentation assistance for Erik Vogt MD, was provided by Jaime Barbour,? Pulley Maintainer on 09/05/2025 at 2:07 PM EST. Valdovinos, Dr. Vogt, have read, observed, and verified documentation. ?? PFSH Medical History (Updated 05/30/25 @ 12:21 by Erik Vogt MD) Dermatitis No pertinent past medical history Surgical History History of tonsillectomy Social History (Updated 09/05/25 @ 13:55 by Jyoti Howard [facility]) Housing: House Alcohol intake: current Alcohol intake frequency: a few times a week Patient Tobacco Use Status: Former Tobacco user e-Cigarette/Vaping Use: Never Used Second Hand Smoke Exposure: No Use of substances other than those prescribed or required for medical reasons: No service: No Current occupational status: retired Current occupational exposures/hazards: No Cognitive needs: No Hearing needs: No Vision needs: No Questionnaire PHQ-9 Over the last 2 weeks, how often have you been bothered by any of the following problems? 3. Trouble falling or staying asleep, or sleeping too much: not at all Source: Developed by Drs. Vega Pichardo, Faina Tuttle, Shailesh Leach and colleagues, with an educational john from [employer]. Thrive Questionnaire Date Thrive assessed: 01/28/25 I am a: Patient What is your living situation today?: I choose not to answer this question Within the past 12 months, did the food you bought not last and you didn't have the money to get more?: I choose not to answer this question Within the past 12 months, did you worry whether your food would run out before you got money to buy more?: I choose not to answer this question Do you have trouble paying for medicines?: I choose not to answer this question Do you have trouble getting transportation to medical appointments?: I choose not to answer this question Do you have trouble paying your heating and electricity bill?: I choose not to answer this question Do you have trouble taking care of your child, family member or friend?: I choose not to answer this question Do you have trouble with day-to-day activities such as bathing, preparing meals, shopping, managing finances, etc.?: I choose not to answer this question Are you currently unemployed and looking for a job?: I choose not to answer this question Are you interested in more education?: I choose not to answer this question Please select the resources that you would like help with: None Currently or been in a relationship where the following occur: I choose not to answer THRIVE Score: 0 CONNIE-7 AMB Questionnaire CONNIE-7 Date CONNIE - 7 assessed: 09/21/23 Source: Developed by Drs. Vega Pichardo, Faina Tuttle, Shailesh Leach and colleagues, with an educational john from [employer]. Review of Systems Const Denies chills, Denies fatigue, Denies fever(s), Denies headache(s) and Denies weakness ENT Denies dizziness and Denies headache(s) Card Denies dyspnea Resp Denies cough, Denies dyspnea, Denies wheezing and Denies other (shortness of breath) Musc Denies numbness and Denies tingling Neuro Denies dizziness, Denies headache(s), Denies numbness, Denies tingling and Denies weakness Psych Denies anxiety and Denies depression Endo Denies fatigue Aller/Immun Denies wheezing Physical exam (Primary Care) Vital Signs: Last Vital Signs Temp 97.7 F 09/05/25 13:55 Pulse 87 09/05/25 13:55 Resp 15 09/05/25 13:55 BP 128/68 09/05/25 13:55 Pulse Ox 98 09/05/25 13:55 Oxygen Delivery Method Room Air 09/05/25 13:55 BMI result Body Mass Index 28.4 Tobacco/Smoking Status: Tobacco use Status Tobacco use date assessed 09/05/25 09/05/25 13:58 Patient Tobacco Use Status Former Tobacco user 09/05/25 13:55 e-Cigarette/Vaping Use Never Used 09/05/25 13:55 Thrive Assessment: Date of Thrive Assessment Date Thrive assessed 01/28/25 09/05/25 13:49 Currently or been in a relationship where the following occur: I choose not to answer Const General: well developed; No acute distress Nutritional Appearance: well nourished Orientation/consciousness: [facility]: Yes normocephalic and Yes atraumatic Eyes General: appearance normal, both eyes and all related structures Pupils: Equal, round and reactive pupils present EOM: EOMs intact bilaterally Resp Effort & Inspection: normal respiratory effort Neuro General: patient oriented x3 and gait normal Cranial nerves: Yes Equal, round and reactive pupils present Psych Affect: normal affect Results AMB Hemoglobin A1c AMB Hemoglobin A1c 5.6 % Last Edit by Jyoti Howard CMA on 09/05/25 14:00 Results Reviewed Results Reviewed: Laboratory Last Values Hgb A1c (Clinic) 5.6 % (4.0-6.0) 09/05/25 13:58 Coding Level of Care Code Est Pt Level 4 (39947) Diagnoses Pre-diabetes R73.03 Essential hypertension I10 Assessment & Plan Assessment & Plan (1) Pre-diabetes: Code(s): R73.03 - Prediabetes Category: Medical Plan: A1c 5.6% which is top normal range Continue working on diet low in sugars and starches (2) Essential hypertension: Code(s): I10 - Essential (primary) hypertension Category: Medical Plan: Had increased her blood pressure medications at prior visit and blood pressure now appears well controlled. Goal is less than 140/90 Continue current medication lisinopril-hydrochlorothiazide 20/25 mg; 2 tabs daily. Orders: Orders TSH reflex Free T4 Today Z00.00 - Encounter for general adult medical examination without abnormal findings AMB Hemoglobin A1c Today R73.03 - Prediabetes Comprehensive [place]. Panel Fast Today Z00.00 - Encounter for general adult medical examination without abnormal findings Complete Blood Count Auto Diff Today Z00.00 - Encounter for general adult medical examination without abnormal findings Microalbumin, Random (w Creat) Today I10 - Essential (primary) hypertension Lipid Panel Today Z00.00 - Encounter for general adult medical examination without abnormal findings UA CC w/rflx Micro + Cult Today Z00.00 - Encounter for general adult medical examination without abnormal findings Referrals Cologuard Test Z12.11 - Encounter for screening for malignant neoplasm of colon, Z12.12 - Encounter for screening for malignant neoplasm of rectum
[2025-09-05 13:55] VITALS: BP 128/68; PULSE 87; RESP 15; TEMP 36.5; O2SAT 98; BMI 28.4
== END 2025-09-05 14:08 | disposition home or self-care (01) ==
LOC: HO.HMCFM 13:43
PROVIDERS: PCP Family Medicine; Visit Provider Family Medicine
DX: R73.03 Prediabetes (principal); I10 Essential (primary) hypertension

== ENCOUNTER → 2025-09-05 13:42 | Outpatient (BNVA) | payer MEDICARE, OTHER, SELFPAY | PROVIDERS: PCP Family Medicine; Visit Provider Family Medicine | DX: R73.03 Prediabetes (principal); I10 Essential (primary) hypertension | CPT/HCPCS: 83036; 99212 ==